=== PATIENT | male | born 1945 | race Caucasian/White ===

== ENCOUNTER 2016-07-22 09:37 | Emergency (ER) | payer MEDICARE, BC ==
[2016-07-22] MEDS ORDERED: Nitroglycerin 0.4 MG Tab.SL ONE (10:00)
[2016-07-22] MEDS ORDERED: Aspirin 81 MG Tab.Chew ONE (10:00)
[2016-07-22] MEDS: Nitroglycerin 0.4 MG Tab.SL SL PRN ×2 (10:05→10:25)
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
[2016-07-22 10:39] LABS: CHLORIDE,CL 101 mmol/L (98-115); SODIUM,NA 140 mmol/L (136-145)
[2016-07-22] MEDS ORDERED: Clopidogrel 75 MG Tab PO ONE (10:47)
[2016-07-22] MEDS ORDERED: Heparin Sodium 5,000 Units/ML Vial IVPUSH ONE (10:47)
[2016-07-22] MEDS ORDERED: Aspirin 81 MG Tab.Chew PO ONE (11:02)
[2016-07-22 11:33] VITALS: BP 135/72
== END 2016-07-22 12:44 ==
LOC: KA.ED 09:37
DX: I21.3 ST elevation (STEMI) myocardial infarction of unspecified site (principal); I48.91 Unspecified atrial fibrillation; I10 Essential (primary) hypertension; M19.90 Unspecified osteoarthritis, unspecified site; E11.9 Type 2 diabetes mellitus without complications; Z98.49 Cataract extraction status, unspecified eye; Z90.49 Acquired absence of other specified parts of digestive tract; Z87.891 Personal history of nicotine dependence; Z88.5 Allergy status to narcotic agent; Z88.8 Allergy status to other drugs, medicaments and biological substances; Z79.82 Long term (current) use of aspirin; Z79.899 Other long term (current) drug therapy; Z79.4 Long term (current) use of insulin
CPT/HCPCS: 71010; 80048; 84484; 85025; 93005; 96374; 99285; A9270; J1644

== ENCOUNTER 2016-07-27 11:08 | Emergency (ER) | payer MEDICARE, BC ==
[2016-07-27] MEDS ORDERED: Sodium Chloride 0.9% 5 ML Syringe FLUSH PRN (11:23)
--- NOTE | 2016-07-27 11:33 | EDM.PDOC ---
Addendum entered and electronically signed by Vazquez Abbott PA 07/27/16 14:26 : ASSESSMENT: NON STEMI WITH ELEVATED TROPONIN PLAN: AIR FLIGHT TO [facility] FOR CATHERIZATION Original Note: ED HISTORY OF PRESENT ILLNESS - General Chief Complaint: Chest Pain Stated Complaint: SHORTNESS OF BREATH Time Seen by Provider: 07/27/16 11:14 Source of Information: Reports: Patient History Limitations: Reports: No limitations - History of Present Illness INITIAL COMMENTS - FREE TEXT/NARRATIVE: PT STATES HE DEVELOPED CHEST FULLNESS AND PAIN WITH INSPIRATION LAST NIGHT AND HAD DIFFICULT SLEEPING BECAUSE HE WAS WORRIED OF HAVING ANOTHER HEART ATTACK. DISCOMFORT IS BECOMING WORSE SO HE PRESENTED TO ER. WAS SEEN HERE FOR STEMI ON AND TRANSPORTED TO [facility]. UNDERWENT PLACEMENT OF 2 CARDIAC STENTS AND WAS DISCHARGED 07/25/16. H/O CABG X 2 IN 2003. DENIES FEVER, PHILIP, ABD PAIN, N/V/D, LEG EDEMA, OR SYNCOPY. Symptom Onset Date: 07/26/16 Timing/Duration: Reports: Getting worse, Gradual onset Severity: mild Location, General: Reports: chest Quality: Reports: Ache, Other (fullness in chest) Worsens with: Reports: Breathing Associated Symptoms (General): Reports: chest pain, shortness of breath. Denies : fever/chills, nausea/vomiting - Related Data Allergies/ADRs: Allergies Allergy/AdvReac Type Severity Reaction Status Date / Time propoxyphene napsylate Allergy Unknown Headache Verified 07/27/16 11:59 [From Darvocet-N 100] oxycodone Allergy Hallucinati Verified 07/27/16 11:59 ons pseudoephedrine Allergy palpatation Verified 07/27/16 11:59 [From Sudafed] s Home Meds: Home Meds Aspirin [Low Dose Aspirin EC] 162 mg PO BEDTIME 04/15/13 [History] Bimatoprost [LUMIGAN 0.01% Ophth Soln] 1 drop EYEBOTH BEDTIME 04/15/13 [History] Diltiazem HCl [Cartia Xt] 240 mg PO BID 04/15/13 [History] Nitroglycerin 0.4 mg SL ASDIRECTED #25 tab.subl 04/15/13 [Rx] Omeprazole 40 mg PO DAILY 04/15/13 [History] glipiZIDE/Metformin HCl [GlipiZIDE-Metformin 2.5-500 MG] 2 each PO BID 04/15/13 [History] Diclofenac Sodium [Diclofenac Sodium ER] 100 mg PO BID 08/21/15 [History] traMADol HCl [Tramadol HCl] 50 - 100 mg PO Q6H PRN 08/21/15 [History] Brimonidine [Alphagan P 0.15% Ophth Soln] 1 drop EYEBOTH BID 07/22/16 [History] Insulin Glargine,Hum.Rec.Anlog [Toujeo Solostar] 30 units SQ BEDTIME 07/22/16 [ History] atorvaSTATin Calcium [Atorvastatin Calcium] 20 mg PO DAILY 07/22/16 [History] Canagliflozin [Invokana] 100 mg PO ACBREAKFAST 07/27/16 [History] Clopidogrel [Plavix] 75 mg PO DAILY 07/27/16 [History] Erythromycin Base [Erythromycin 0.5% Ophth Oint] 1 applic OP BEDTIME 07/27/16 [ History] Fluorometholone [Flarex 0.1% Ophth Susp] 5 ml EYEBOTH DAILY 07/27/16 [History] Furosemide [Lasix] 20 mg PO DAILY 07/27/16 [History] Metoprolol Succinate [Toprol XL] 100 mg PO DAILY 07/27/16 [History] Polyvinyl Alcohol [LiquiTears 1.4% Ophth Soln] 1 drop EYEBOTH QID PRN 07/27/16 [ History] Rivaroxaban [Xarelto] 20 mg PO DAILY@1800 07/27/16 [History] Past Medical History HEENT History: Reports: Cataract Cardiovascular History: Reports: Afib, Hypertension Genitourinary History: Reports: Renal calculus Musculoskeletal History: Reports: Arthritis Endocrine/Metabolic History: Reports: Diabetes, type II Oncologic (Cancer) History: Reports: Other (see below) Other Oncologic History: skin Other Dermatologic History: skin cancer face head and ears - Infectious Disease History Infectious Disease History: Reports: Chicken pox, Measles, Mumps - Past Surgical History HEENT Surgical History: Reports: Cataract surgery, Eye surgery, Other (see below ) Other HEENT Surgeries/Procedures: cornea transplant Cardiovascular Surgical History: Reports: Coronary artery bypass GI Surgical History: Reports: Appendectomy, Colonoscopy Male Surgical History: Reports: Lithotripsy (ESWL) Neurological Surgical History: Reports: Lumbar spine, Other (see below) Other Neurological Surgeries/Procedures: nerve relocation Musculoskeletal Surgical History: Reports: Knee replacement, Other (see below) Other Musculoskeletal Surgeries/Procedures:: back surgery Social & Family History - Family History Family Medical History: Noncontributory - Tobacco Use Smoking Status *Q: Former Smoker Years of Tobacco use: 15 - Caffeine Use Caffeine Use: Reports: None - Recreational Drug Use Recreational Drug Use: No Drug Use in Last 12 Months: No - Living Situation & Occupation Living situation: Reports: Occupation: retired ED ROS GENERAL - Review of Systems Review Of Systems: ROS reveals no pertinent complaints other than HPI. Constitutional: Reports: no symptoms HEENT: Reports: No symptoms Respiratory: Reports: Shortness of Breath Cardiovascular: Reports: Chest pain Endocrine: Reports: no symptoms GI/Abdominal: Reports: No symptoms : Reports: no symptoms Musculoskeletal: Reports: no symptoms Skin: Reports: no symptoms Neurological: Reports: No Symptoms Psychiatric: Reports: No symptoms Hematologic/Lymphatic: Reports: no symptoms Immunologic: Reports: no symptoms ED EXAM, GENERAL - Physical Exam Exam: See Below Exam Limited By: No limitations General Appearance: alert, WD/WN, no apparent distress Eye Exam: bilateral eye: normal inspection Nose: normal inspection, no blood Throat/Mouth: Normal inspection, Normal oropharynx, No airway compromise Head: atraumatic, normocephalic Neck: normal inspection, supple Respiratory/Chest: no respiratory distress, lungs clear, normal breath sounds, no accessory muscle use Cardiovascular: regular rate, rhythm, no murmur GI/Abdominal: normal bowel sounds, soft, non tender, no organomegaly, no distention, no abnormal bruit, no mass Back Exam: normal inspection. No: CVA tenderness (L), CVA tenderness (R) Extremities: normal inspection, no pedal edema Neurological: alert, oriented, normal cognition Psychiatric: normal affect, normal mood Skin Exam: Warm, Dry, Intact, Normal color, No rash Lymphatic: no adenopathy EKG INTERPRETATION EKG Date: 07/27/16 Time: 11:25 Rhythm: NSR Rate (beats/min): 63 ST-T: elevated Comparison: change from previous EKG Course - Orders/Labs/Meds Orders: Active Orders 24 hr Category Date Time Status Cardiac Monitoring [RC] . DIRECTED Care 07/27/16 11:23 Ordered EKG Documentation Completion [RC] ASDIRECTED Care 07/27/16 11:25 Ordered Peripheral IV Care [RC] . DIRECTED Care 07/27/16 11:25 Ordered Pulse Oximetry [RC] CONTINUOUS Care 07/27/16 11:24 Ordered Chest 1V Frontal [CR] Stat Exams 07/27/16 11:24 Ordered B-TYPE NATRIURETIC PEPTIDE,BNP [CHEM] Stat Lab 07/27/16 11:23 Ordered CBC WITH AUTO DIFF [HEME] Stat Lab 07/27/16 11:23 Ordered CKMB [CHEM] Stat Lab 07/27/16 11:23 Ordered COMPREHENSIVE METABOLIC PN,CMP [CHEM] Stat Lab 07/27/16 11:24 Ordered MAGNESIUM [CHEM] Stat Lab 07/27/16 11:23 Ordered PTT,PARTIAL THROMBOPLSTIN TIME [COAG] Stat Lab 07/27/16 11:23 Ordered TROPONIN I [CHEM] Stat Lab 07/27/16 11:23 Ordered Sodium Chloride 0.9% [Syrex Flush] Med 07/27/16 11:23 Ordered 5 ml FLUSH Q8HR PRN Peripheral IV Insertion Adult [OM.PC] Stat Oth 07/27/16 11:23 Ordered Saline Lock Insert [OM.PC] Stat Oth 07/27/16 11:23 Ordered EKG 12 Lead [EK] Stat Ther 07/27/16 11:24 Ordered - Re-Assessments/Exams Free Text/Narrative Re-Assessment/Exam: 07/27/16 12:48 PT AFEBRILE, NONTOXIC APPEARING, CP RESOLVED. DISCUSSED CASE WITH DR LIGHT AND DR ZAMORANO AT [facility]. WILL ACCEPT TRANSFER VIA [facility]. Departure - Departure Time of Disposition: 12:52 Disposition: DC/Tfer to Acute Hospital 02 Reason for Transfer *Q: Primary PCI Indicated Condition: fair Clinical Impression: Non-STEMI (non-ST elevated myocardial infarction) - My Orders Last 24 Hours: My Active Orders 07/27/16 11:23 Cardiac Monitoring [RC] . DIRECTED B-TYPE NATRIURETIC PEPTIDE,BNP [CHEM] Stat CBC WITH AUTO DIFF [HEME] Stat CKMB [CHEM] Stat MAGNESIUM [CHEM] Stat PTT,PARTIAL THROMBOPLSTIN TIME [COAG] Stat TROPONIN I [CHEM] Stat Sodium Chloride 0.9% [Syrex Flush] 5 ml FLUSH Q8HR PRN Peripheral IV Insertion Adult [OM.PC] Stat Saline Lock Insert [OM.PC] Stat 07/27/16 11:24 Pulse Oximetry [RC] CONTINUOUS Chest 1V Frontal [CR] Stat COMPREHENSIVE METABOLIC PN,CMP [CHEM] Stat EKG 12 Lead [EK] Stat 07/27/16 11:25 EKG Documentation Completion [RC] ASDIRECTED Peripheral IV Care [RC] . DIRECTED - Assessment/Plan Last 24 Hours: My Active Orders 07/27/16 11:23 Cardiac Monitoring [RC] . DIRECTED B-TYPE NATRIURETIC PEPTIDE,BNP [CHEM] Stat CBC WITH AUTO DIFF [HEME] Stat CKMB [CHEM] Stat MAGNESIUM [CHEM] Stat PTT,PARTIAL THROMBOPLSTIN TIME [COAG] Stat TROPONIN I [CHEM] Stat Sodium Chloride 0.9% [Syrex Flush] 5 ml FLUSH Q8HR PRN Peripheral IV Insertion Adult [OM.PC] Stat Saline Lock Insert [OM.PC] Stat 07/27/16 11:24 Pulse Oximetry [RC] CONTINUOUS Chest 1V Frontal [CR] Stat COMPREHENSIVE METABOLIC PN,CMP [CHEM] Stat EKG 12 Lead [EK] Stat 07/27/16 11:25 EKG Documentation Completion [RC] ASDIRECTED Peripheral IV Care [RC] . DIRECTED
[2016-07-27] MEDS ORDERED: Nitroglycerin 2% Oint 1 GM UD Packet TOP ONE (11:36)
[2016-07-27 11:47] VITALS: BP 140/57
[2016-07-27] MEDS ORDERED: LORazepam 2 MG/ML MDV IVPUSH ONE (12:36)
[2016-07-27] MEDS ORDERED: Aspirin 81 MG Tab.Chew PO ONE (12:36)
[2016-07-27] MEDS ORDERED: Heparin Sodium 5,000 Units/ML Vial IVPUSH ONE (12:41)
== END 2016-07-27 14:25 ==
LOC: KA.ED 11:08
DX: I21.4 Non-ST elevation (NSTEMI) myocardial infarction (principal); I10 Essential (primary) hypertension; E11.9 Type 2 diabetes mellitus without complications; I48.91 Unspecified atrial fibrillation; M19.90 Unspecified osteoarthritis, unspecified site; Z90.49 Acquired absence of other specified parts of digestive tract; Z79.899 Other long term (current) drug therapy; R06.02 Shortness of breath; Z88.8 Allergy status to other drugs, medicaments and biological substances; Z79.4 Long term (current) use of insulin; Z79.82 Long term (current) use of aspirin; Z98.49 Cataract extraction status, unspecified eye; Z95.1 Presence of aortocoronary bypass graft; Z98.890 Other specified postprocedural states; Z87.891 Personal history of nicotine dependence
CPT/HCPCS: 71010; 80053; 82553; 83735; 83880; 84484; 85025; 85610; 85730; 93005; 96372; 96374; 99285; A9270; J1644; J2060

== ENCOUNTER 2016-08-07 11:10 | Emergency (ER) | payer MEDICARE, BC ==
[2016-08-07] MEDS ORDERED: Nitroglycerin 2% Oint 1 GM UD Packet TOP ONE (11:25)
[2016-08-07] MEDS ORDERED: Sodium Chloride 0.9% 5 ML Syringe FLUSH PRN (11:25)
[2016-08-07] MEDS ORDERED: Aspirin 81 MG Tab.Chew PO ONE (11:25)
--- NOTE | 2016-08-07 11:31 | EDM.PDOC ---
ED HISTORY OF PRESENT ILLNESS - General Chief Complaint: Cardiovascular Problem Stated Complaint: palpatations Time Seen by Provider: 08/07/16 11:10 Source of Information: Reports: Patient, Family History Limitations: Reports: No limitations - History of Present Illness INITIAL COMMENTS - FREE TEXT/NARRATIVE: 71 YO WM presents to ER from clinic today due to palpitations. Pt was seen 1 week ago and had acute CT requiring PTCA with stent at [facility]. Pt was seen by cardiology yesterday and had his amniodirine decreased to 1 tablet from 4 tablets. Pt dneies chest pain, denies shortness of breath, denies dizziness. Pt reports feeling diaphoretic this am but currently feels fine. Pt had an EKG in clinic and it showed concern of AMI prompting ER evaluation. Symptom Onset Date: 08/07/16 Timing/Duration: Reports: Day(s): (1) Severity: mild Location, General: Reports: chest Improves with: Reports: None Worsens with: Reports: None Associated Symptoms (General): Reports: no other symptoms, diaphoresis. Denies : chest pain, nausea/vomiting, shortness of breath, syncope - Related Data Allergies/ADRs: Allergies Allergy/AdvReac Type Severity Reaction Status Date / Time propoxyphene napsylate Allergy Unknown Headache Verified 07/27/16 11:59 [From Darvocet-N 100] oxycodone Allergy Hallucinati Verified 07/27/16 11:59 ons pseudoephedrine Allergy palpatation Verified 07/27/16 11:59 [From Sudafed] s Home Meds: Home Meds Aspirin [Low Dose Aspirin EC] 81 mg PO BEDTIME 04/15/13 [History] Bimatoprost [LUMIGAN 0.01% Ophth Soln] 1 drop EYEBOTH BEDTIME 04/15/13 [History] Diltiazem HCl [Cartia Xt] 240 mg PO BID 04/15/13 [History] Nitroglycerin 0.4 mg SL ASDIRECTED #25 tab.subl 04/15/13 [Rx] Omeprazole 40 mg PO DAILY 04/15/13 [History] glipiZIDE/Metformin HCl [GlipiZIDE-Metformin 2.5-500 MG] 2 each PO BID 04/15/13 [History] Diclofenac Sodium [Diclofenac Sodium ER] 100 mg PO BID 08/21/15 [History] traMADol HCl [Tramadol HCl] 50 - 100 mg PO Q6H PRN 08/21/15 [History] Brimonidine [Alphagan P 0.15% Ophth Soln] 1 drop EYEBOTH BID 07/22/16 [History] Insulin Glargine,Hum.Rec.Anlog [Toujeo Solostar] 30 units SQ BEDTIME 07/22/16 [ History] atorvaSTATin Calcium [Atorvastatin Calcium] 40 mg PO DAILY 07/22/16 [History] Canagliflozin [Invokana] 100 mg PO ACBREAKFAST 07/27/16 [History] Clopidogrel [Plavix] 75 mg PO DAILY 07/27/16 [History] Erythromycin Base [Erythromycin 0.5% Ophth Oint] 1 applic OP BEDTIME 07/27/16 [ History] Fluorometholone [Flarex 0.1% Ophth Susp] 5 ml EYEBOTH DAILY 07/27/16 [History] Furosemide [Lasix] 20 mg PO DAILY 07/27/16 [History] Metoprolol Succinate [Toprol XL] 100 mg PO DAILY 07/27/16 [History] Polyvinyl Alcohol [LiquiTears 1.4% Ophth Soln] 1 drop EYEBOTH QID PRN 07/27/16 [ History] Rivaroxaban [Xarelto] 20 mg PO DAILY@1800 07/27/16 [History] Past Medical History HEENT History: Reports: Cataract Cardiovascular History: Reports: Afib, Hypertension Genitourinary History: Reports: Renal calculus Musculoskeletal History: Reports: Arthritis Endocrine/Metabolic History: Reports: Diabetes, type II Oncologic (Cancer) History: Reports: Other (see below) Other Oncologic History: skin Other Dermatologic History: skin cancer face head and ears - Infectious Disease History Infectious Disease History: Reports: Chicken pox, Measles, Mumps - Past Surgical History HEENT Surgical History: Reports: Cataract surgery, Eye surgery, Other (see below ) Other HEENT Surgeries/Procedures: cornea transplant Cardiovascular Surgical History: Reports: Coronary artery bypass GI Surgical History: Reports: Appendectomy, Colonoscopy Male Surgical History: Reports: Lithotripsy (ESWL) Neurological Surgical History: Reports: Lumbar spine, Other (see below) Other Neurological Surgeries/Procedures: nerve relocation Musculoskeletal Surgical History: Reports: Knee replacement, Other (see below) Other Musculoskeletal Surgeries/Procedures:: back surgery Social & Family History - Family History Family Medical History: Noncontributory - Tobacco Use Smoking Status *Q: Former Smoker Years of Tobacco use: 15 Packs/Tins Daily: 1 Used Tobacco, but Quit: Yes Month Tobacco Last Used: August Second Hand Smoke Exposure: No - Caffeine Use Caffeine Use: Reports: None - Recreational Drug Use Recreational Drug Use: No Drug Use in Last 12 Months: No - Living Situation & Occupation Living situation: Reports: Occupation: retired ED ROS GENERAL - Review of Systems Review Of Systems: See Below Constitutional: Reports: no symptoms HEENT: Reports: No symptoms Respiratory: Reports: No Symptoms Cardiovascular: Reports: No symptoms, Palpitations Endocrine: Reports: no symptoms GI/Abdominal: Reports: No symptoms : Reports: no symptoms Musculoskeletal: Reports: no symptoms Skin: Reports: no symptoms Neurological: Reports: No Symptoms Psychiatric: Reports: No symptoms Hematologic/Lymphatic: Reports: no symptoms Immunologic: Reports: no symptoms ED EXAM, GENERAL - Physical Exam Exam: See Below Exam Limited By: No limitations General Appearance: alert, WD/WN, no apparent distress Eye Exam: bilateral eye: PERRL Ears: normal external exam, normal canal, hearing grossly normal, normal TMs Ear Exam: bilateral ear: auricle normal, canal normal, TM normal Nose: normal inspection, normal mucosa, no blood Throat/Mouth: Normal inspection, Normal lips, Normal teeth, Normal gums, Normal oropharynx, Normal voice, No airway compromise Head: atraumatic, normocephalic Neck: normal inspection, supple, non-tender, full range of motion Respiratory/Chest: no respiratory distress, lungs clear, normal breath sounds, no accessory muscle use, chest non-tender Cardiovascular: normal peripheral pulses, regular rate, rhythm, no edema, no gallop, no JVD, no murmur, no rub GI/Abdominal: normal bowel sounds, soft, non tender, no organomegaly, no distention, no abnormal bruit, no mass Back Exam: normal inspection, full range of motion, NT Extremities: normal inspection, normal range of motion, non-tender, normal capillary refill, no pedal edema Neurological: alert, oriented, CN II-XII intact, normal cognition, normal gait, normal reflexes, no motor/sensory deficits Psychiatric: normal affect, normal mood Skin Exam: Warm, Dry, Intact, Normal color, No rash Lymphatic: no adenopathy EKG INTERPRETATION EKG Date: 08/07/16 Time: 11:10 Rhythm: NSR Rate (beats/min): 64 [place]: normal P-wave: present QRS: normal ST-T: depressed QT: normal Comparison: change from previous EKG Course - Vital Signs Last Recorded V/S: Last Vital Signs Temp Pulse 80 08/07/16 11:10 Resp 20 08/07/16 11:10 BP 132/71 08/07/16 11:10 Pulse Ox 97 08/07/16 11:10 - Orders/Labs/Meds Orders: Active Orders 24 hr Category Date Time Status EKG Documentation Completion [RC] ASDIRECTED Care 08/07/16 11:25 Active Peripheral IV Care [RC] . DIRECTED Care 08/07/16 11:25 Active Chest 1V Frontal [CR] Stat Exams 08/07/16 11:25 Taken Sodium Chloride 0.9% [Syrex Flush] Med 08/07/16 11:25 Active 5 ml FLUSH Q8HR PRN Peripheral IV Insertion Adult [OM.PC] Routine Oth 08/07/16 11:25 Ordered EKG 12 Lead [EK] Routine Ther 08/07/16 11:25 Ordered Medication Orders Sodium Chloride (Syrex Flush) 5 ml FLUSH Q8HR PRN PRN Reason: Keep Vein Open Labs: Laboratory Tests 08/07/16 08/07/16 08/07/16 Range/Units 11:30 11:30 11:30 WBC 8.5 (5.0-10.0) 10^3/uL RBC 4.93 (4.50-6.00) 10^6/uL Hgb 14.1 (13.0-17.0) g/dL Hct 43.2 (40.0-52.0) % MCV 87.7 (82.0-92.0) fL MCH 28.7 (27.0-31.0) pg MCHC 32.7 (32.0-36.0) g/dL RDW 13.4 (11.5-14.5) % Plt Count 419 H (150-300) 10^3/uL MPV 7.5 (7.4-10.4) fL Neut % (Auto) 75.5 H (50.0-70.0) % Lymph % (Auto) 15.0 L (20.0-40.0) % [place] % (Auto) 6.4 (2.0-8.0) % Eos % (Auto) 2.1 (1.0-3.0) % Baso % (Auto) 1.0 (0.0-1.0) % Neut # (Auto) 6.4 (2.5-7.0) 10^3/uL Lymph # (Auto) 1.3 (1.0-4.0) 10^3/uL [place] # (Auto) 0.5 (0.1-0.8) 10^3/uL Eos # (Auto) 0.2 (0.1-0.3) 10^3/uL Baso # (Auto) 0.1 (0.0-0.1) 10^3/uL PT 13.2 H (8.9-11.4) SEC INR 1.3 H (0.9-1.1) APTT 31.6 H (20.8-31.2) SEC Sodium 139 (136-145) mmol/L Potassium 4.2 (3.3-5.3) mmol/L Chloride 100 (98-115) mmol/L Carbon Dioxide 28.8 (21.0-32.0) mmol/L BUN 25 (6-25) mg/dL Creatinine 1.32 H (0.51-1.17) mg/dL Est Cr Clr Drug Dosing TNP Estimated GFR (MDRD) 53 mL/min Glucose 149 H (70-110) mg/dL Calcium 9.3 (8.7-10.3) mg/dL Creatine Kinase 95 (26-276) U/L CK-MB (CK-2) 1.60 (0.00-4.30) ng/mL Troponin I 0.21 H* (0.00-0.070) ng/mL Meds: Medications Generic Name Dose Route Start Last Admin Trade Name Freq PRN Reason Stop Dose Admin Sodium Chloride 5 ml 08/07/16 11:25 Syrex Flush FLUSH Q8HR PRN Keep Vein Open Discontinued Medications Generic Name Dose Route Start Last Admin Trade Name Freq PRN Reason Stop Dose Admin Aspirin 324 mg 08/07/16 11:25 08/07/16 11:46 Aspirin PO 08/07/16 11:26 324 mg ONETIME ONE Administration Nitroglycerin 1 gm 08/07/16 11:25 08/07/16 11:46 Nitro-Bid 2% TOP 08/07/16 11:26 1 gm ONETIME ONE Administration - Radiology Interpretation Free Text/Narrative:: CXR- NAD Departure - Departure Time of Disposition: 12:46 Disposition: Against Medical Advice 07 Condition: serious Clinical Impression: Heart palpitations, Troponin I above reference range Instructions: Heart Attack, [id number], Atrial Fibrillation, [id number], Palpitations, [id number] Referrals: Zonia Harrison MD [Primary Care Provider] - Forms: Refusal of Care AMA - My Orders Last 24 Hours: My Active Orders 08/07/16 11:25 EKG Documentation Completion [RC] ASDIRECTED Peripheral IV Care [RC] . DIRECTED Chest 1V Frontal [CR] Stat Sodium Chloride 0.9% [Syrex Flush] 5 ml FLUSH Q8HR PRN Peripheral IV Insertion Adult [OM.PC] Routine EKG 12 Lead [EK] Routine - Assessment/Plan Last 24 Hours: My Active Orders 08/07/16 11:25 EKG Documentation Completion [RC] ASDIRECTED Peripheral IV Care [RC] . DIRECTED Chest 1V Frontal [CR] Stat Sodium Chloride 0.9% [Syrex Flush] 5 ml FLUSH Q8HR PRN Peripheral IV Insertion Adult [OM.PC] Routine EKG 12 Lead [EK] Routine Assessment:: 1. elevated trop I 2. palpitations Plan: 1. discussed case with Dr Walden- Cardiology who recommended 23 hour observation due to elevated trop I. Pt had a trop I of 3.0 on 07/27/2016 and presented without chest pain at that time. Trop I appears to be trending down but unclear if this is a new presentation. Dr Walden recommended telemetry and repeat trop I in am. 2. Pt refusing to stay. Pt understands risks of AMI, and mcc disability due to abnormal labs and presentation. Pt agreed to come to outpatient lab tomorrow for repeat trop I in am and a follow up with Dr Arce on friday for further evaluation and treatment. Pt will return to Er for worsening symptoms or any episode of chest pain
[2016-08-07 12:13] LABS: CHLORIDE,CL 100 mmol/L (98-115); SODIUM,NA 139 mmol/L (136-145)
[2016-08-07 19:15] VITALS: BP 116/56
== END 2016-08-07 13:15 | disposition left against medical advice (07) ==
LOC: KA.ED 11:10
DX: R00.2 Palpitations (principal); R79.89 Other specified abnormal findings of blood chemistry; I48.91 Unspecified atrial fibrillation; I10 Essential (primary) hypertension; E11.9 Type 2 diabetes mellitus without complications; R94.31 Abnormal electrocardiogram [ECG] [EKG]; Z90.49 Acquired absence of other specified parts of digestive tract; Z98.890 Other specified postprocedural states; Z87.891 Personal history of nicotine dependence; Z88.8 Allergy status to other drugs, medicaments and biological substances; Z79.899 Other long term (current) drug therapy; Z79.82 Long term (current) use of aspirin
CPT/HCPCS: 36415; 71010; 80048; 82550; 82553; 84484; 85025; 85610; 85730; 93005; 99285; A9270

== ENCOUNTER 2016-09-04 03:00 | Emergency (ER) | payer MEDICARE, BC ==
[~2016-09-04 03:00] MED LIST: Sodium Chloride 0.9% 1,000 ML IV SCH
[2016-09-04] MEDS ORDERED: Furosemide 40 MG/4 ML VIAL ONE (03:05)
[2016-09-04] MEDS ORDERED: Morphine 4 MG/ML Syringe ONE (03:05)
[2016-09-04] MEDS ORDERED: Albuterol/Ipratropium 3.0-0.5 MG/3 ML Neb Soln ONE (03:26)
[2016-09-04 03:54] LABS: CHLORIDE,CL 98 mmol/L (98-115); SODIUM,NA 144 mmol/L (136-145)
--- NOTE | 2016-09-04 04:36 | EDM.PDOC ---
ED HPI GENERAL MEDICAL PROBLEM - General Stated Complaint: short of breath Time Seen by Provider: 09/04/16 03:10 Source of Information: Reports: Patient, Family History Limitations: Reports: Respiratory Distress - History of Present Illness INITIAL COMMENTS - FREE TEXT/NARRATIVE: Patient brought to ER by with difficulty breathing. He feels very short of breath and is breathing rapidly. His says this started at 0100 when he awoke complaining of shortness of breath. He had a STEMI and two stents placed 6 weeks ago at [facility]. He denies chest pain or heaviness currently. - Related Data Allergies Allergy/AdvReac Type Severity Reaction Status Date / Time propoxyphene napsylate Allergy Unknown Headache Verified 07/27/16 11:59 [From Darvocet-N 100] oxycodone Allergy Hallucinati Verified 07/27/16 11:59 ons pseudoephedrine Allergy palpatation Verified 07/27/16 11:59 [From Sudafed] s Home Meds: Home Meds Aspirin [Low Dose Aspirin EC] 81 mg PO BEDTIME 04/15/13 [History] Bimatoprost [LUMIGAN 0.01% Ophth Soln] 1 drop EYEBOTH BEDTIME 04/15/13 [History] Nitroglycerin 0.4 mg SL ASDIRECTED #25 tab.subl 04/15/13 [Rx] traMADol HCl [Tramadol HCl] 50 - 100 mg PO Q6H PRN 08/21/15 [History] Brimonidine [Alphagan P 0.15% Ophth Soln] 1 drop EYEBOTH BID 07/22/16 [History] Insulin Glargine,Hum.Rec.Anlog [Toumto Solostar] 30 units SQ BEDTIME 07/22/16 [ History] Canagliflozin [Invokana] 100 mg PO ACBREAKFAST 07/27/16 [History] Clopidogrel [Plavix] 75 mg PO DAILY 07/27/16 [History] Erythromycin Base [Erythromycin 0.5% Ophth Oint] 1 applic OP BEDTIME 07/27/16 [ History] Fluorometholone [Flarex 0.1% Ophth Susp] 5 ml EYEBOTH DAILY 07/27/16 [History] Furosemide [Lasix] 20 mg PO DAILY 07/27/16 [History] Metoprolol Succinate [Toprol XL] 100 mg PO DAILY 07/27/16 [History] Polyvinyl Alcohol [LiquiTears 1.4% Ophth Soln] 1 drop EYEBOTH QID PRN 07/27/16 [ History] Rivaroxaban [Xarelto] 20 mg PO DAILY@1800 07/27/16 [History] ALPRAZolam [Alprazolam] 0.25 mg PO BID PRN 08/07/16 [History] Amiodarone [Cordarone] 200 mg PO DAILY 08/07/16 [History] Pantoprazole [ProTONIX] 40 mg PO DAILY 08/07/16 [History] Rosuvastatin [Crestor] 20 mg PO BEDTIME 08/07/16 [History] glipiZIDE/Metformin HCl [GlipiZIDE-Metformin 2.5-500 MG] 1 each PO BIDMEALS [History] Past Medical History HEENT History: Reports: Cataract Cardiovascular History: Reports: Afib, Hypertension Genitourinary History: Reports: Renal Calculus Musculoskeletal History: Reports: Arthritis Neurological History: Reports: None Endocrine/Metabolic History: Reports: Diabetes, Type II Oncologic (Cancer) History: Reports: Other (See Below) Other Oncologic History: skin Other Dermatologic History: skin cancer face head and ears - Infectious Disease History Infectious Disease History: Reports: Chicken Pox, Measles, Mumps - Past Surgical History HEENT Surgical History: Reports: Cataract Surgery, Eye Surgery, Other (See Below ) Cardiovascular Surgical History: Reports: Coronary Artery Bypass Neurological Surgical History: Reports: Lumbar Spine, Other (See Below) Musculoskeletal Surgical History: Reports: Knee Replacement, Other (See Below) Social & Family History - Family History Family Medical History: Noncontributory Cardiac: Reports: Bypass, ID Endocrine/Metabolic: Reports: Diabetes, type II Oncologic: Reports: Ovarian - Tobacco Use Smoking Status *Q: Former Smoker Years of Tobacco use: 15 Packs/Tins Daily: 1 Used Tobacco, but Quit: Yes Month Tobacco Last Used: August Second Hand Smoke Exposure: No - Caffeine Use Caffeine Use: Reports: None - Recreational Drug Use Recreational Drug Use: No Drug Use in Last 12 Months: No - Living Situation & Occupation Living situation: Reports: Occupation: Retired ED ROS GENERAL - Review of Systems Review Of Systems: ROS reveals no pertinent complaints other than HPI. ED EXAM, GENERAL - Physical Exam Exam: See Below Exam Limited By: Respiratory Distress General Appearance: Alert (Awake but struggling too much with breathing to talk. ), Anxious Eye Exam: Bilateral Eye: EOMI, Normal Inspection, PERRL Ears: Normal External Exam Nose: Normal Inspection, No Blood Throat/Mouth: No Airway Compromise Head: Atraumatic, Normocephalic Neck: Non-Tender, Full Range of Motion Respiratory/Chest: Respiratory Distress, Decreased Breath Sounds, Crackles, Accessory Muscle Use Cardiovascular: Normal Peripheral Pulses, Regular Rate, Rhythm, No JVD Peripheral Pulses: 2+: Carotid (L), Carotid (R), Radial (L), Radial (R), Posterior Tibial (L), Posterior Tibial (R) GI/Abdominal: Distended Extremities: Pedal Edema (mild), Pallor Neurological: Alert, Oriented, No Motor/Sensory Deficits Psychiatric: Anxious Skin Exam: Diaphoretic, Pallor Course - Orders/Labs/Meds Orders: Active Orders 24 hr Category Date Time Status Chest 1V Frontal [CR] Routine Exams 09/04/16 Taken B-TYPE NATRIURETIC PEPTIDE,BNP [CHEM] Stat Lab 09/04/16 03:20 Results BASIC METABOLIC PANEL,BMP [CHEM] Stat Lab 09/04/16 03:20 Results CKMB [CHEM] Stat Lab 09/04/16 03:20 Results CREATINE KINASE,CK [CHEM] Stat Lab 09/04/16 03:20 Results TROPONIN I [CHEM] Stat Lab 09/04/16 03:20 Results Labs: Laboratory Tests 09/04/16 09/04/16 09/04/16 Range/Units 03:20 03:20 03:20 WBC 15.2 H (5.0-10.0) 10^3/uL RBC 5.02 (4.50-6.00) 10^6/uL Hgb 14.5 (13.0-17.0) g/dL Hct 44.7 (40.0-52.0) % MCV 89.1 (82.0-92.0) fL MCH 28.9 (27.0-31.0) pg MCHC 32.5 (32.0-36.0) g/dL RDW 15.7 H (11.5-14.5) % Plt Count 309 H (150-300) 10^3/uL MPV 8.7 (7.4-10.4) fL Neut % (Auto) 59.1 (50.0-70.0) % Lymph % (Auto) 30.4 (20.0-40.0) % [place] % (Auto) 8.2 H (2.0-8.0) % Eos % (Auto) 1.7 (1.0-3.0) % Baso % (Auto) 0.6 (0.0-1.0) % Neut # (Auto) 9.0 H (2.5-7.0) 10^3/uL Lymph # (Auto) 4.6 H (1.0-4.0) 10^3/uL [place] # (Auto) 1.2 H (0.1-0.8) 10^3/uL Eos # (Auto) 0.3 (0.1-0.3) 10^3/uL Baso # (Auto) 0.1 (0.0-0.1) 10^3/uL PT 11.5 H (8.9-11.4) SEC INR 1.1 (0.9-1.1) APTT 24.8 (20.8-31.2) SEC Sodium 144 (136-145) mmol/L Potassium 3.3 (3.3-5.3) mmol/L Chloride 98 (98-115) mmol/L Carbon Dioxide 29.4 (21.0-32.0) mmol/L BUN 27 H (6-25) mg/dL Creatinine 1.48 H (0.51-1.17) mg/dL Est Cr Clr Drug Dosing TNP Estimated GFR (MDRD) 47 mL/min Glucose 323 H (70-110) mg/dL Calcium 8.7 (8.7-10.3) mg/dL Creatine Kinase 112 (26-276) U/L CK-MB (CK-2) 1.60 (0.00-4.30) ng/mL Troponin I 0.04 (0.00-0.070) ng/mL Meds: Medications Discontinued Medications Generic Name Dose Route Start Last Admin Trade Name Freq PRN Reason Stop Dose Admin Albuterol/Ipratropium Confirm 09/04/16 03:26 Duoneb 3.0-0.5 Mg/3 Ml Administered 09/04/16 03:27 Dose 3 ml .ROUTE .STK-MED ONE Furosemide Confirm 09/04/16 03:05 Lasix Administered 09/04/16 03:06 Dose 40 mg .ROUTE .STK-MED ONE Morphine Sulfate Confirm 09/04/16 03:05 Morphine Administered 09/04/16 03:06 Dose 4 mg .ROUTE .STK-MED ONE - Re-Assessments/Exams Free Text/Narrative Re-Assessment/Exam: 09/04/16 04:46 Patient continued to struggle with breathing and O2 sats hovered in 60s and 70s. We called anesthesia and patient was able to increase sats to 90% meanwhile. DuoNeb didn't help noticeably. Two sublingual nitros were administered as well as aspirin. [facility] to [facility] in [place] where he was accepted by geophysical prospecting permit agent Dr. Edwards. Med transported after patient was intubated. Patient remained hemodynamically stable following intubation. Troponin was 0.04, BNP 750 ( compared with 630 a week ago). Departure - Departure Time of Disposition: 04:40 Disposition: DC/Tfer to Acute Hospital 02 Condition: fair Clinical Impression: Respiratory distress - Discharge Information - My Orders Last 24 Hours: My Active Orders 09/04/16 Chest 1V Frontal [CR] Routine 09/04/16 03:20 B-TYPE NATRIURETIC PEPTIDE,BNP [CHEM] Stat BASIC METABOLIC PANEL,BMP [CHEM] Stat CKMB [CHEM] Stat CREATINE KINASE,CK [CHEM] Stat TROPONIN I [CHEM] Stat - Assessment/Plan Last 24 Hours: My Active Orders 09/04/16 Chest 1V Frontal [CR] Routine 09/04/16 03:20 B-TYPE NATRIURETIC PEPTIDE,BNP [CHEM] Stat BASIC METABOLIC PANEL,BMP [CHEM] Stat CKMB [CHEM] Stat CREATINE KINASE,CK [CHEM] Stat TROPONIN I [CHEM] Stat
[2016-09-04] MEDS ORDERED: Sodium Chloride 0.9% 1,000 ML ONE (04:53)
[2016-09-04] MEDS ORDERED: Aspirin 81 MG Tab.Chew ONE (04:59)
[2016-09-04] MEDS ORDERED: Aspirin 81 MG Tab.Chew PO ONE (05:00)
[2016-09-04 05:43] VITALS: BP 195/92
[2016-09-04] MEDS ORDERED: Albuterol/Ipratropium 3.0-0.5 MG/3 ML Neb Soln NEB ONE (16:47)
[2016-09-04] MEDS: Furosemide 40 MG/4 ML VIAL IVPUSH SCH (16:55)
== END 2016-09-04 04:40 ==
LOC: KA.ED 03:00
DX: R06.00 Dyspnea, unspecified (principal); I48.91 Unspecified atrial fibrillation; I10 Essential (primary) hypertension; M19.90 Unspecified osteoarthritis, unspecified site; E11.9 Type 2 diabetes mellitus without complications; Z98.49 Cataract extraction status, unspecified eye; Z98.890 Other specified postprocedural states; Z87.891 Personal history of nicotine dependence; Z88.5 Allergy status to narcotic agent; Z88.8 Allergy status to other drugs, medicaments and biological substances; Z79.82 Long term (current) use of aspirin; Z79.899 Other long term (current) drug therapy; Z79.4 Long term (current) use of insulin
CPT/HCPCS: 36415; 71010; 80048; 82550; 82553; 83880; 84484; 85025; 85610; 85730; 93005; 96361; 96374; 99285; A9270; J1940; J7030; 31500

== ENCOUNTER 2019-06-03 14:32 | Inpatient (IN) | payer MEDICARE, BC ==
[2019-06-03] MEDS ORDERED: Sodium Chloride 0.9% 10 ML Syringe FLUSH PRN (16:33)
[2019-06-03] MEDS ORDERED: Diltiazem 125 MG in Sodium Chloride 0.9% 100 ML IV SCH (16:45)
[2019-06-03 17:12] LABS: ANION GAP 13.8 mmol/L (5-15); CHLORIDE,CL 102 mmol/L (98-115); SODIUM,NA 139 mmol/L (136-145)
[2019-06-03 17:36] VITALS: BP 135/56; PULSE 126
--- NOTE | 2019-06-04 08:24 | DISCH ---
Discharge/Transfer Note HOSPITAL COURSE: This is a 73-year-old male who was admitted this afternoon with atrial fibrillation with rapid ventricular response. The patient was hemodynamically stable and basically asymptomatic with the exception of a little bit of shortness of breath. He was admitted to the floor and initiated with Cardizem drip. Lab work was drawn with his IV start. It did show troponin I elevated at 0.11. The remainder of the lab work showed an elevated BUN and creatinine, which is a chronic problem for the patient. CBC was basically normal. His INR was 1.7 today. At 12-lead EKG was performed in the clinic prior to admission and showed atrial fibrillation with rapid ventricular response, ventricular rate of 134. He has remained in that rhythm on telemetry since admission. Knowing that this patient does have a very significant cardiac history with recurrent atrial fibrillation following a maze procedure with cardiac ablation and two cardioversion since February of 2019, I felt it was imperative that he be transferred to [facility] in [place], [place]. I did speak to Dr. Baldwin and he accepted the patient and transfer the patient. One call nurse will facilitate a nurse to nurse report with the cardiac intermediate unit at the Center. He is followed by Dr. Daugherty as well as Riki ALDRIDGE and Cardiology at [facility]. I did discuss the plan of care with the patient and he does wish to proceed. We will see him back in followup point after discharge. FINAL DIAGNOSES: 1. Atrial fibrillation with rapid ventricular response, hemodynamically stable. 2. Elevated troponin I, possible myocardial infarction. 3. Diabetes mellitus. 4. Hypertension. 5. BPH. 6. Hypercholesterolemia. 7. Congestive heart failure. 8. Long-term anticoagulation therapy with a subtherapeutic INR. /[id number]/MODL
== END 2019-06-03 18:15 | DRG 282 ==
LOC: KA.OC 14:32 → UNDOADMIN 16:10 → KA.MS 16:10
DX: I48.91 Unspecified atrial fibrillation (principal); I21.9 Acute myocardial infarction, unspecified; E11.9 Type 2 diabetes mellitus without complications; N40.0 Benign prostatic hyperplasia without lower urinary tract symptoms; I11.0 Hypertensive heart disease with heart failure; I50.9 Heart failure, unspecified; R79.1 Abnormal coagulation profile; F41.9 Anxiety disorder, unspecified; K21.9 Gastro-esophageal reflux disease without esophagitis; E78.00 Pure hypercholesterolemia, unspecified; G89.29 Other chronic pain; Z88.8 Allergy status to other drugs, medicaments and biological substances; Z79.01 Long term (current) use of anticoagulants; Z79.899 Other long term (current) drug therapy; Z79.84 Long term (current) use of oral hypoglycemic drugs
CPT/HCPCS: 36415; 36416; 80053; 82550; 82553; 84484; 85025; 85610; 93005; J3490; J7050

== ENCOUNTER 2019-09-26 15:40 | Emergency (ER) | payer MEDICARE, BC ==
[2019-09-26 15:53] VITALS: BP 157/64; PULSE 78
--- NOTE | 2019-09-26 16:27 | CR ---
[id number] RAD/RAD Elbow Left 2V Exam: RAD Elbow Left 2V Indication:ELBOW PAIN AND SWELLING. Comparison: No prior imaging for comparison. Discussion: Soft tissue swelling over the olecranon. Findings are nonspecific and can be seen with contusion and/or bursitis. Triceps enthesopathy at its olecranon attachment. 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 Elevated fat pads suggesting a joint effusion. No radiographically evident fracture. No dislocation. Impression: As above. Johny Kelley MD 09/26/19 [id number] Thank you for allowing us to participate in the care of your patient.
--- NOTE | 2019-09-26 16:50 | EDM.PDOC ---
ED HPI GENERAL MEDICAL PROBLEM - General Chief Complaint: General Stated Complaint: elbow swelling left Time Seen by Provider: 09/26/19 16:15 Source of Information: Reports: Patient History Limitations: Reports: No Limitations - History of Present Illness INITIAL COMMENTS - FREE TEXT/NARRATIVE: 74-year-old male presents to the emergency room with increasing pain and swelling over the left elbow. Patient fell approximately 1 week ago when he was attempting to sit on a 6 gallon bucket stool. He accidentally kicked the bucket stool with his heel causing him to fall backwards. He struck his left elbow. He noticed some swelling immediately following the fall. He became increasingly painful and more swollen yesterday evening. The pain prompted him to be seen in the emergency room. He does notice some warmth to the elbow and increasing swelling. He denies fever or chills. He denies nausea. He denies prior trauma to the elbow. 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 He denies numbness or tingling in the arm. He denies pain in the shoulder or wrist.. Onset: Gradual Onset Date: 09/19/19 Duration: Week(s): (one), Getting Worse Location: Reports: Upper Extremity, Left (elbow) Quality: Reports: Ache, Pressure Severity: Moderate Improves with: Reports: None Worsens with: Reports: Rest (resting it on hard surface) Context: Reports: Trauma (fall onto left elbow) Associated Symptoms: Reports: No Other Symptoms Left Elbow Pain Score (Numeric/FACES): 9 - Related Data Allergies Allergy/AdvReac Type Severity Reaction Status Date / Time propoxyphene napsylate Allergy Unknown Headache Verified 08/13/18 09:20 [From Darvocet-N 100] oxycodone Allergy Hallucinati Verified 08/13/18 09:20 ons pseudoephedrine Allergy palpatation Verified 08/13/18 09:20 [From Sudafed] s Home Meds: Home Meds Bimatoprost [LUMIGAN 0.01% Ophth Soln] 1 drop EYEBOTH BEDTIME 04/15/13 [History] Rosuvastatin [Crestor] 20 mg PO BEDTIME 08/07/16 [History] Brimonidine Tartrate/Timolol [Combigan 0.2%-0.5% Eye Drops] 1 drop EYEBOTH BID 09/21/16 [History] Finasteride [Proscar] 5 mg PO DAILY 09/21/16 [History] Fluorometholone [Flarex 0.1% Ophth Susp] 1 drop EYEBOTH QAM 09/21/16 [History] Nitroglycerin 0.4 mg SL ASDIRECTED PRN 09/21/16 [History] Docusate Sodium [Colace] 100 mg PO BID cap 10/03/16 [Rx] Empagliflozin [Jardiance] 25 mg PO DAILY 04/23/18 [History] Iron Polysaccharide Complex [Iferex 150] 150 mg PO BID 04/23/18 [History] Losartan Potassium [Cozaar] 50 mg PO DAILY 04/23/18 [History] Tresiba 42 units SQ BEDTIME 04/23/18 [History] polyethylene glycoL 3350 [MiraLAX] 17 gm PO BID PRN 04/23/18 [History] Furosemide [Lasix] 20 mg PO 0800,1200 04/24/18 [History] Gabapentin [Neurontin] 600 mg PO 2100 04/24/18 [History] Magnesium Oxide 400 mg PO DAILY 04/24/18 [History] Omeprazole 40 mg PO DAILY 04/24/18 [History] metFORMIN HCl [Metformin HCl] 500 mg PO BID 04/24/18 [History] traMADol HCl [Tramadol HCl] 50 mg PO Q6H PRN 04/24/18 [History] Metoprolol Succinate [Toprol XL] 25 mg PO BID 06/03/19 [History] Warfarin Sodium [Jantoven] 5 mg PO ASDIRECTED 06/03/19 [History] Warfarin Sodium [Jantoven] 7.5 mg PO ASDIRECTED 06/03/19 [History] amLODIPine [Norvasc] 5 mg PO DAILY 06/03/19 [History] Past Medical History HEENT History: Reports: Cataract Cardiovascular History: Reports: Afib, Aneurysm, Angina, Heart Failure, High Cholesterol, Hypertension, AR, Stents Respiratory History: Reports: Intubation, Previous Gastrointestinal History: Reports: GERD Genitourinary History: Reports: Renal Calculus Musculoskeletal History: Reports: Arthritis Neurological History: Reports: None Psychiatric History: Reports: Anxiety Endocrine/Metabolic History: Reports: Diabetes, Type II Hematologic History: Reports: Anticoagulation Therapy, Blood Transfusion(s) Oncologic (Cancer) History: Reports: Basal Cell Carcinoma Other Oncologic History: skin Other Dermatologic History: skin cancer face head and ears - Infectious Disease History Infectious Disease History: Reports: Chicken Pox - Past Surgical History HEENT Surgical History: Reports: Cataract Surgery, Eye Surgery Cardiovascular Surgical History: Reports: Coronary Artery Bypass, Coronary Artery Stent Other Cardiovascular Surgeries/Procedures: s/p resection of LV aneurysm GI Surgical History: Reports: Appendectomy, Colonoscopy Neurological Surgical History: Reports: Lumbar Spine, Other (See Below) Musculoskeletal Surgical History: Reports: Knee Replacement Social & Family History - Family History Family Medical History: Noncontributory Cardiac: Reports: Bypass, AR Endocrine/Metabolic: Reports: Diabetes, type II Oncologic: Reports: Ovarian - Tobacco Use Smoking Status *Q: Never Smoker - Caffeine Use Caffeine Use: Reports: Soda Other Caffeine Use: decaf coffee - Recreational Drug Use Recreational Drug Use: No - Living Situation & Occupation Living situation: Reports: Occupation: Retired ED ROS GENERAL - Review of Systems Review Of Systems: Comprehensive ROS is negative, except as noted in HPI. ED EXAM, GENERAL - Physical Exam Exam: See Below Exam Limited By: No Limitations General Appearance: Alert, WD/WN, No Apparent Distress, Obese Ears: Hearing Grossly Normal Nose: Normal Inspection Throat/Mouth: Normal Voice, No Airway Compromise Head: Atraumatic, Normocephalic Neck: Normal Inspection Respiratory/Chest: No Respiratory Distress, Lungs Clear Cardiovascular: Regular Rate, Rhythm Back Exam: Normal Inspection Extremities: Joint Swelling (olecranon bursa swelling), Limited Range of Motion (left elbow), Increased Warmth, Other (Tenderness over the olecranon bursa to palpation elbow). No: Redness Neurological: Alert, Oriented, No Motor/Sensory Deficits Psychiatric: Normal Affect, Normal Mood Skin Exam: Warm, Dry, Intact, Increased Warmth (left elbow olecranon). No: Wound/Incision ED GENERAL MEDICAL PROCEDURES - Additional/Other Procedure(s) Other (Free Text) Procedure(s): The right elbow was entirely prepped with ChloraPrep. Under sterile conditions and gloves 6 mL of 1% lidocaine with epinephrine was injected using a 25-gauge needle into the olecranon bursa. New syringe and 18-gauge needle then was used to aspirate 8 mL of normal-appearing synovial fluid from the left elbow. Elbow was then cleansed with gauze a Band-Aid applied and a 4 inch Donnell compressive wrap over the elbow. Patient talked procedure well. Cultures were then obtained for aerobic, anaerobic, Gram stain. Course - Vital Signs Last Recorded V/S: Last Vital Signs Temp 97.4 F 09/26/19 15:48 Pulse 78 09/26/19 15:48 Resp 20 09/26/19 15:48 BP 157/64 H 09/26/19 15:48 Pulse Ox 96 09/26/19 15:48 - Orders/Labs/Meds Orders: Active Orders 24 hr Category Date Time Status C-REACTIVE PROTEIN [CHEM] Stat Lab 09/26/19 16:17 Ordered CBC WITH AUTO DIFF [HEME] Stat Lab 09/26/19 16:17 Ordered CULTURE WOUND + SMEAR [RM] Stat Lab 09/26/19 16:26 Ordered INR,PT,PROTHROMBIN TIME [COAG] Stat Lab 09/26/19 16:17 Ordered SEDIMENTATION RATE MANUAL [HEME] Stat Lab 09/26/19 16:17 Ordered Labs: Laboratory Tests 09/26/19 Range/Units 16:20 WBC 9.36 (5.00-10.00) 10^3/uL RBC 4.76 (4.50-6.00) 10^6/uL Hgb 14.2 D (13.0-17.0) g/dL Hct 44.1 (40.0-52.0) % MCV 92.6 H (82.0-92.0) fL MCH 29.8 (27.0-31.0) pg MCHC 32.2 (32.0-36.0) g/dL RDW 14.7 H (11.5-14.5) % Plt Count 166 (150-400) 10^3/uL MPV 9.5 (7.4-10.4) fL Immature Gran % (Auto) 0.1 (0.0-5.0) % Neut % (Auto) 79.0 H (50.0-70.0) % Lymph % (Auto) 10.9 L (20.0-40.0) % [place] % (Auto) 8.9 H (2.0-8.0) % Eos % (Auto) 0.7 L (1.0-3.0) % Baso % (Auto) 0.4 (0.0-1.0) % Neut # (Auto) 7.39 H (2.50-7.00) 10^3/uL Lymph # (Auto) 1.02 (1.00-4.00) 10^3/uL [place]ax # (Auto) 0.83 H (0.10-0.80) 10^3/uL Eos # (Auto) 0.07 L (0.10-0.30) 10^3/uL Baso # (Auto) 0.04 (0.00-0.10) 10^3/uL Immature Gran # (Auto) 0.01 (0.00-0.50) 10^3/uL Meds: Medications Discontinued Medications Generic Name Dose Route Start Last Admin Trade Name Freq PRN Reason Stop Dose Admin Lidocaine/Epinephrine 20 ml 09/26/19 16:21 Xylocaine 1% With Epinephrine 1:100,000 INJECT 09/26/19 16:22 ONETIME ONE - Re-Assessments/Exams Free Text/Narrative Re-Assessment/Exam: 09/26/19 16:56 Patient had some relief with the aspiration of left olecranon bursa. Departure - Departure Time of Disposition: 17:30 Disposition: Home, Self-Care 01 Condition: Good Clinical Impression: Olecranon bursitis of left elbow, Currently on parenteral anticoagulation and warfarin overlap therapy - Discharge Information Instructions: Elbow Bursitis Referrals: Zonia Harrison MD [Primary Care Provider] - Sepsis Event Note - Evaluation Sepsis Screening Result: No Definite Risk - Focused Exam Vital Signs: Vital Signs Temp Pulse Resp BP Pulse Ox 09/26/19 15:48 97.4 F 78 20 157/64 H 96 Date Exam was Performed: 09/26/19 Time Exam was Performed: 16:44 - My Orders Last 24 Hours: My Active Orders 09/26/19 16:17 C-REACTIVE PROTEIN [CHEM] Stat CBC WITH AUTO DIFF [HEME] Stat INR,PT,PROTHROMBIN TIME [COAG] Stat SEDIMENTATION RATE MANUAL [HEME] Stat 09/26/19 16:26 CULTURE WOUND + SMEAR [RM] Stat - Assessment/Plan Last 24 Hours: My Active Orders 09/26/19 16:17 C-REACTIVE PROTEIN [CHEM] Stat CBC WITH AUTO DIFF [HEME] Stat INR,PT,PROTHROMBIN TIME [COAG] Stat SEDIMENTATION RATE MANUAL [HEME] Stat 09/26/19 16:26 CULTURE WOUND + SMEAR [RM] Stat Assessment:: Left elbow olecranon bursitis Plan: 1. Cultures will be taken for left elbow olecranon bursitis. Gram stain, aerobic , anaerobic cultures from aspiration of left olecranon bursitis. 2. Duricef 500 mg twice a day for 7 days. 3. Follow-up with your primary care next week for follow-up culture results. 4. Compressive wrap left elbow was applied. May take this off and reapply after showers. 5. If pain, discomfort persist or evidence of a septic olecranon bursitis occurs orthopedic consultation for excision of olecranon bursa was discussed with the patient.
[2019-09-26] MEDS: Lidocaine 1% with EPINEPHrine 1:100,000 20 ML MDV INJECT ONE (17:01)
[2019-09-26] MEDS: Cefadroxil 500 MG Cap PO ONE (19:29)
== END 2019-09-26 17:25 | disposition home or self-care (01) ==
LOC: KA.ED 15:40
DX: M70.22 Olecranon bursitis, left elbow (principal); I48.91 Unspecified atrial fibrillation; E78.00 Pure hypercholesterolemia, unspecified; I11.0 Hypertensive heart disease with heart failure; I50.9 Heart failure, unspecified; I25.2 Old myocardial infarction; K21.9 Gastro-esophageal reflux disease without esophagitis; E11.9 Type 2 diabetes mellitus without complications; F41.9 Anxiety disorder, unspecified; Z88.5 Allergy status to narcotic agent; Z88.8 Allergy status to other drugs, medicaments and biological substances; Z79.899 Other long term (current) drug therapy; Z95.5 Presence of coronary angioplasty implant and graft; Z79.01 Long term (current) use of anticoagulants; Z79.4 Long term (current) use of insulin
CPT/HCPCS: 20610; 36415; 73070-LT; 85025; 85610; 85651; 86140; 87070; 87205; 99283; 99284

== ENCOUNTER 2020-06-20 14:06 | Inpatient (IN) | payer MEDICARE, BC ==
[2020-06-20] MEDS ORDERED: Melatonin 3 MG Tab PO PRN (16:08)
[2020-06-20] MEDS ORDERED: Nitroglycerin 0.4 MG Tab.SL SL PRN (16:08)
[2020-06-20] MEDS ORDERED: Carboxymethylcellulose Sodium 0.5% Ophth Soln 15 ML Bottle EYEBOTH PRN (16:08)
[2020-06-20] MEDS ORDERED: Calcium Carbonate 500 MG Tab.Chew PO PRN (16:08)
[2020-06-20] MEDS ORDERED: Furosemide 20 MG Tab ONE (17:06)
[2020-06-20] MEDS: Furosemide 20 MG Tab PO SCH (17:08)
[2020-06-20] MEDS: metFORMIN 500 MG Tab PO SCH (17:51)
[2020-06-20] MEDS: amLODIPine 5 MG Tab PO SCH (17:52)
[2020-06-20] MEDS ORDERED: Warfarin 2.5 MG Tab PO SCH (18:00)
[2020-06-20] MEDS: oxyCODONE 5 MG Tab PO PRN ×2 (19:11→23:35)
[2020-06-20] MEDS: Timolol Maleate 0.5% Ophth Soln 5 ML Bottle EYEBOTH SCH (20:46)
[2020-06-20] MEDS: TRESIBA SQ SCH (20:46)
[2020-06-20] MEDS: Metoprolol Succinate 25 MG Tab.ER PO SCH (20:47)
[2020-06-20] MEDS: Gabapentin 300 MG Cap PO SCH (20:48)
[2020-06-20] MEDS: Rosuvastatin 10 MG Tab PO SCH (20:49)
[2020-06-20] MEDS: Tamsulosin 0.4 MG Cap.ER PO SCH (20:49)
[2020-06-20] MEDS: Brimonidine 0.2% Ophth Soln 15 ML Bottle EYEBOTH SCH (20:51)
[2020-06-20] MEDS: Latanoprost 0.005% Ophth Soln 2.5 ML Bottle EYEBOTH SCH (20:54)
[2020-06-20] MEDS: LORazepam 0.5 MG Tab PO SCH (20:54)
[2020-06-20] MEDS: Acetaminophen 325 MG Tab PO PRN (20:57)
[2020-06-21] MEDS: Omeprazole 20 MG Cap.CR PO SCH (07:32)
[2020-06-21] MEDS: Finasteride 5 MG Tab PO SCH (08:26)
[2020-06-21] MEDS: Metoprolol Succinate 25 MG Tab.ER PO SCH ×2 (08:26→20:59)
[2020-06-21] MEDS: Furosemide 20 MG Tab PO SCH ×2 (08:26→15:50)
[2020-06-21] MEDS: Iron Polysaccharides Complex 150 MG Cap PO SCH ×2 (08:26→11:50)
[2020-06-21] MEDS: Losartan 25 MG Tab PO SCH (08:26)
[2020-06-21] MEDS: metFORMIN 500 MG Tab PO SCH ×2 (08:27→17:34)
[2020-06-21] MEDS: Brimonidine 0.2% Ophth Soln 15 ML Bottle EYEBOTH SCH ×2 (08:31→21:05)
[2020-06-21] MEDS: Timolol Maleate 0.5% Ophth Soln 5 ML Bottle EYEBOTH SCH ×2 (08:31→21:05)
[2020-06-21] MEDS: Fluorometholone 0.1% Ophth Susp 5 ML Bottle EYEBOTH SCH (08:43)
[2020-06-21] MEDS: oxyCODONE 5 MG Tab PO PRN ×3 (09:47→15:15)
[2020-06-21] MEDS: Magnesium Oxide 500 MG Tab PO SCH (11:50)
[2020-06-21] MEDS: Aspirin 81 MG Tab.EC PO SCH (11:51)
--- NOTE | 2020-06-21 12:13 | HP ---
HISTORY OF PRESENT ILLNESS: This is a 75-year-old male who is being transferred today from [facility] for swing bed care and rehabilitation following a right total knee arthroplasty on 06/15/2020. The patient does have a history of atrial fibrillation, status post pulmonary vein isolation ablation and is on anticoagulation with Coumadin. He also has diabetes mellitus type 2, coronary artery disease, and is status post CABG. He was discharged from the hospital briefly. On his way home, he developed acute right leg pain. He presented back to the hospital and was found to have a deep venous thrombosis in the right distal femoral, popliteal, posterior tibial, and peroneal vein on ultrasound. This is quite surprising due to the fact that the patient was discharged on anticoagulation with Lovenox bridging. The patient's INR was subtherapeutic when the blood clot occurred. Lovenox was discontinued once the INR was therapeutic. Today, the INR is 2.1. The patient is in good spirits. His pain is well controlled. He states that he was getting p.r.n. Dilaudid and after just 2 doses, he seemed to be doing much better as far as pain control. The patient does have mild anemia with a hemoglobin of 9.1 with no overt signs of bleeding. He is taking aspirin, metoprolol. CAD, status post CABG. He does have chronic congestive heart failure with an ejection fraction of 40% to 45%. He is taking metoprolol, losartan and Lasix for the same. He does have atrial fibrillation and is on long-term anticoagulation with Coumadin as well as a beta barron. He does have hyperlipidemia and is on Crestor. He has hypertension and his blood pressure is within goal. He will continue amlodipine, losartan, and metoprolol. Diabetes type 2. He is on Lantus and a correction scale insulin. He is also on Jardiance. He does have BPH and will continue taking Flomax and finasteride. He does have a history of glaucoma and is using eyedrops for the same. He does have anxiety and is taking Ativan at bedtime. He does have obesity with a BMI of 32.7. The patient's physician, Rachelle March MD, called me herself with direct provider to provider report in regard to this patient. That is an unusual occurrence and was much appreciated. The patient does have an ice machine at home and his son is going to bring that. They found out that he was allergic to Xeroform that was used for dressing changes. He is just on an ABD with Donnell wrap now. Incision looks very good. PHYSICAL EXAMINATION: VITAL SIGNS: Temperature is 96.9, pulse 86, respirations 16, blood pressure 135/58, O2 saturation 95% on room air. SKIN: Warm and dry to touch. CARDIAC: An irregularly irregular rhythm. No murmur, click, or gallop is auscultated. LUNGS: Clear without rales, wheezes, or rhonchi. ABDOMEN: Soft, nontender. Bowel sounds present in all 4 quadrants. EXTREMITIES: There is right knee swelling, which is postoperative in nature. IMAGING: There was an x-ray performed prior to his discharge of the right knee and there was found to be a large joint effusion. There was subcutaneous air, which was thought to be related to postoperative changes. IMPRESSION: 1. Status post right knee arthroplasty, here for physical therapy and rehabilitation in swing bed with an admission date of 06/20/2020. 2. Right lower extremity deep venous thrombosis, on anticoagulation. 3. Atrial fibrillation, rate controlled. 4. Hyperlipidemia, on statin. 5. Hypertension, at goal. 6. BPH, stable. 7. Diabetes mellitus type 2, stable. 8. Coronary artery disease, status post CABG and atrial fibrillation. These are stable as well. We will continue to follow him in swing bed. He will receive a physical therapy evaluation. His son will bring his ice machine from home. /[id number]/MODL
[2020-06-21] MEDS: amLODIPine 5 MG Tab PO SCH (17:33)
[2020-06-21] MEDS ORDERED: Warfarin 2.5 MG Tab PO ONE (18:00)
[2020-06-21] MEDS: Acetaminophen 325 MG Tab PO PRN (18:24)
[2020-06-21] MEDS: cefTRIAXone 1 GM Vial IVPUSH SCH (20:56)
[2020-06-21] MEDS: Gabapentin 300 MG Cap PO SCH (20:59)
[2020-06-21] MEDS: LORazepam 0.5 MG Tab PO SCH (20:59)
[2020-06-21] MEDS: Tamsulosin 0.4 MG Cap.ER PO SCH (20:59)
[2020-06-21] MEDS: Rosuvastatin 10 MG Tab PO SCH (20:59)
[2020-06-21] MEDS: [UNRECOGNIZED DRUG - OTHER] TOP SCH (21:05)
[2020-06-21] MEDS: Latanoprost 0.005% Ophth Soln 2.5 ML Bottle EYEBOTH SCH (21:06)
[2020-06-21] MEDS: TRESIBA SQ SCH (21:06)
[2020-06-22] MEDS: oxyCODONE 5 MG Tab PO PRN ×3 (06:27→17:47)
[2020-06-22] MEDS: Omeprazole 20 MG Cap.CR PO SCH ×2 (06:28→08:05)
[2020-06-22] MEDS: Finasteride 5 MG Tab PO SCH (08:01)
[2020-06-22] MEDS: Losartan 25 MG Tab PO SCH (08:02)
[2020-06-22] MEDS: Iron Polysaccharides Complex 150 MG Cap PO SCH ×2 (08:03→11:49)
[2020-06-22] MEDS: Metoprolol Succinate 25 MG Tab.ER PO SCH ×2 (08:03→21:26)
[2020-06-22] MEDS: Furosemide 20 MG Tab PO SCH ×2 (08:04→16:47)
[2020-06-22] MEDS: metFORMIN 500 MG Tab PO SCH ×2 (08:04→17:48)
[2020-06-22] MEDS: Timolol Maleate 0.5% Ophth Soln 5 ML Bottle EYEBOTH SCH ×2 (08:08→21:29)
[2020-06-22] MEDS: Brimonidine 0.2% Ophth Soln 15 ML Bottle EYEBOTH SCH ×2 (08:08→21:24)
[2020-06-22] MEDS: Fluorometholone 0.1% Ophth Susp 5 ML Bottle EYEBOTH SCH (08:08)
[2020-06-22] MEDS: Acetaminophen 325 MG Tab PO PRN (08:25)
[2020-06-22] MEDS: Magnesium Oxide 500 MG Tab PO SCH (11:49)
[2020-06-22] MEDS: Aspirin 81 MG Tab.EC PO SCH (11:49)
[2020-06-22] MEDS: amLODIPine 5 MG Tab PO SCH (17:48)
[2020-06-22] MEDS ORDERED: Warfarin 2.5 MG Tab PO ONE (18:00)
[2020-06-22] MEDS: Tamsulosin 0.4 MG Cap.ER PO SCH (21:26)
[2020-06-22] MEDS: LORazepam 0.5 MG Tab PO SCH (21:26)
[2020-06-22] MEDS: Rosuvastatin 10 MG Tab PO SCH (21:26)
[2020-06-22] MEDS: Gabapentin 300 MG Cap PO SCH (21:26)
[2020-06-22] MEDS: [UNRECOGNIZED DRUG - OTHER] TOP SCH (21:29)
[2020-06-22] MEDS: cefTRIAXone 1 GM Vial IVPUSH SCH (21:34)
[2020-06-22] MEDS: Sodium Chloride 0.9% 10 ML Syringe FLUSH PRN (21:38)
[2020-06-22] MEDS: TRESIBA SQ SCH (21:39)
[2020-06-22] MEDS: Latanoprost 0.005% Ophth Soln 2.5 ML Bottle EYEBOTH SCH (21:39)
[2020-06-23] MEDS: Omeprazole 20 MG Cap.CR PO SCH (06:43)
[2020-06-23] MEDS: Iron Polysaccharides Complex 150 MG Cap PO SCH ×2 (08:36→12:02)
[2020-06-23] MEDS: Finasteride 5 MG Tab PO SCH (08:36)
[2020-06-23] MEDS: Losartan 25 MG Tab PO SCH (08:37)
[2020-06-23] MEDS: Metoprolol Succinate 25 MG Tab.ER PO SCH ×2 (08:37→20:39)
[2020-06-23] MEDS: Furosemide 20 MG Tab PO SCH ×2 (08:37→15:25)
[2020-06-23] MEDS: metFORMIN 500 MG Tab PO SCH ×2 (08:37→18:08)
[2020-06-23] MEDS: Timolol Maleate 0.5% Ophth Soln 5 ML Bottle EYEBOTH SCH ×2 (08:38→20:44)
[2020-06-23] MEDS: Brimonidine 0.2% Ophth Soln 15 ML Bottle EYEBOTH SCH ×2 (08:39→20:43)
[2020-06-23] MEDS: Fluorometholone 0.1% Ophth Susp 5 ML Bottle EYEBOTH SCH (08:39)
[2020-06-23] MEDS: oxyCODONE 5 MG Tab PO PRN ×2 (09:45→21:14)
[2020-06-23] MEDS: HYDROmorphone 1 MG/ML Syringe IVPUSH PRN (10:54)
[2020-06-23] MEDS: Acetaminophen 325 MG Tab PO PRN (11:59)
--- NOTE | 2020-06-23 12:01 | PN ---
06/22/2020 PATIENT NAME: AMBER QUINTANILLA SUBJECTIVE: He was admitted to swing bed on 06/21/2020. I did not have an opportunity to observe his incision upon admission. Today, I was able to look at it. He had some sort of allergic reaction to one of the dressings and I am unclear of which dressing it exactly was, however, he has erythema surrounding the incision itself and there are blisters as well. The incision itself is intact. There is obviously a joint effusion from postoperative changes. He also has some ecchymosis on the inside of his right leg extending all the way down to the ankle. This is secondary to postoperative changes. Also, he had a DVT postoperatively. He is now receiving a Telfa/ABD and then Donnell wrap dressing changes on a daily basis. We did draw blood cultures because he had a fever on the evening of 06/21/2020. There has been no growth after one day. He is being treated empirically with Rocephin 1 g IV on a daily basis. /[id number]/MODL
[2020-06-23] MEDS: Magnesium Oxide 500 MG Tab PO SCH (12:02)
[2020-06-23] MEDS: Aspirin 81 MG Tab.EC PO SCH (12:02)
[2020-06-23] MEDS: amLODIPine 5 MG Tab PO SCH (18:08)
[2020-06-23] MEDS: Gabapentin 300 MG Cap PO SCH (20:39)
[2020-06-23] MEDS: cefTRIAXone 1 GM Vial IVPUSH SCH (20:39)
[2020-06-23] MEDS: LORazepam 0.5 MG Tab PO SCH (20:39)
[2020-06-23] MEDS: Rosuvastatin 10 MG Tab PO SCH (20:43)
[2020-06-23] MEDS: [UNRECOGNIZED DRUG - OTHER] TOP SCH (20:43)
[2020-06-23] MEDS: Tamsulosin 0.4 MG Cap.ER PO SCH (20:43)
[2020-06-23] MEDS: Latanoprost 0.005% Ophth Soln 2.5 ML Bottle EYEBOTH SCH (20:44)
[2020-06-23] MEDS: TRESIBA SQ SCH (20:47)
[2020-06-23] MEDS: Sodium Chloride 0.9% 10 ML Syringe FLUSH PRN (20:51)
[2020-06-24] MEDS: Omeprazole 20 MG Cap.CR PO SCH (07:44)
[2020-06-24] MEDS: metFORMIN 500 MG Tab PO SCH ×2 (08:18→17:38)
[2020-06-24] MEDS: Iron Polysaccharides Complex 150 MG Cap PO SCH ×2 (08:18→12:16)
[2020-06-24] MEDS: Furosemide 20 MG Tab PO SCH ×2 (08:18→15:23)
[2020-06-24] MEDS: Losartan 25 MG Tab PO SCH (08:19)
[2020-06-24] MEDS: Metoprolol Succinate 25 MG Tab.ER PO SCH ×2 (08:19→22:12)
[2020-06-24] MEDS: Timolol Maleate 0.5% Ophth Soln 5 ML Bottle EYEBOTH SCH ×2 (08:20→21:39)
[2020-06-24] MEDS: Fluorometholone 0.1% Ophth Susp 5 ML Bottle EYEBOTH SCH (08:21)
[2020-06-24] MEDS: Brimonidine 0.2% Ophth Soln 15 ML Bottle EYEBOTH SCH ×2 (08:21→21:32)
[2020-06-24] MEDS: Finasteride 5 MG Tab PO SCH (08:27)
[2020-06-24] MEDS: oxyCODONE 5 MG Tab PO PRN ×2 (09:28→16:14)
[2020-06-24] MEDS: Magnesium Oxide 500 MG Tab PO SCH (12:16)
[2020-06-24] MEDS: Aspirin 81 MG Tab.EC PO SCH (12:17)
[2020-06-24] MEDS: amLODIPine 5 MG Tab PO SCH (17:37)
[2020-06-24] MEDS ORDERED: Warfarin 5 MG Tab PO ONE (18:00)
[2020-06-24] MEDS: HYDROmorphone 1 MG/ML Syringe IVPUSH PRN (21:33)
[2020-06-24] MEDS: Sodium Chloride 0.9% 10 ML Syringe FLUSH PRN (21:38)
[2020-06-24] MEDS: cefTRIAXone 1 GM Vial IVPUSH SCH (21:42)
[2020-06-24] MEDS: Latanoprost 0.005% Ophth Soln 2.5 ML Bottle EYEBOTH SCH (21:47)
[2020-06-24] MEDS ORDERED: 50% Dextrose in Water 50 ML Syringe IV PRN (22:01)
[2020-06-24] MEDS ORDERED: Glucagon,Human Recombinant 1 MG Vial IM PRN (22:01)
[2020-06-24] MEDS: Tamsulosin 0.4 MG Cap.ER PO SCH (22:12)
[2020-06-24] MEDS: LORazepam 0.5 MG Tab PO SCH (22:13)
[2020-06-24] MEDS: Rosuvastatin 10 MG Tab PO SCH (22:13)
[2020-06-24] MEDS: Gabapentin 300 MG Cap PO SCH (22:13)
[2020-06-24] MEDS: [UNRECOGNIZED DRUG - OTHER] TOP SCH (22:15)
[2020-06-24] MEDS: TRESIBA SQ SCH (22:15)
[2020-06-24] MEDS: Insulin Glargine,Human Rec. Analog 100 Units/ML 3 ML Pen SUBCUT SCH (22:20)
[2020-06-25] MEDS: Omeprazole 20 MG Cap.CR PO SCH (06:31)
[2020-06-25] MEDS: Metoprolol Succinate 25 MG Tab.ER PO SCH ×2 (08:25→21:49)
[2020-06-25] MEDS: Iron Polysaccharides Complex 150 MG Cap PO SCH ×2 (08:26→12:30)
[2020-06-25] MEDS: Losartan 25 MG Tab PO SCH (08:27)
[2020-06-25] MEDS: Finasteride 5 MG Tab PO SCH (08:28)
[2020-06-25] MEDS: Furosemide 20 MG Tab PO SCH ×2 (08:28→15:53)
[2020-06-25] MEDS: metFORMIN 500 MG Tab PO SCH ×2 (08:28→17:27)
[2020-06-25] MEDS: Fluorometholone 0.1% Ophth Susp 5 ML Bottle EYEBOTH SCH (08:29)
[2020-06-25] MEDS: Brimonidine 0.2% Ophth Soln 15 ML Bottle EYEBOTH SCH ×2 (08:30→21:50)
[2020-06-25] MEDS: Timolol Maleate 0.5% Ophth Soln 5 ML Bottle EYEBOTH SCH ×2 (08:30→21:50)
[2020-06-25] MEDS: oxyCODONE 5 MG Tab PO PRN ×2 (08:36→22:29)
[2020-06-25] MEDS: Aspirin 81 MG Tab.EC PO SCH (12:29)
[2020-06-25] MEDS: Magnesium Oxide 500 MG Tab PO SCH (12:29)
[2020-06-25] MEDS: amLODIPine 5 MG Tab PO SCH (17:27)
[2020-06-25] MEDS ORDERED: Warfarin 2.5 MG Tab PO ONE (18:00)
[2020-06-25] MEDS ORDERED: Warfarin 5 MG Tab PO SCH (18:00)
[2020-06-25] MEDS: Rosuvastatin 10 MG Tab PO SCH (21:48)
[2020-06-25] MEDS: LORazepam 0.5 MG Tab PO SCH (21:48)
[2020-06-25] MEDS: Tamsulosin 0.4 MG Cap.ER PO SCH (21:48)
[2020-06-25] MEDS: Gabapentin 300 MG Cap PO SCH (21:49)
[2020-06-25] MEDS: Latanoprost 0.005% Ophth Soln 2.5 ML Bottle EYEBOTH SCH (21:50)
[2020-06-25] MEDS: [UNRECOGNIZED DRUG - OTHER] TOP SCH (21:50)
[2020-06-25] MEDS: cefTRIAXone 1 GM Vial IVPUSH SCH (21:50)
[2020-06-25] MEDS: Insulin Glargine,Human Rec. Analog 100 Units/ML 3 ML Pen SUBCUT SCH (21:52)
[2020-06-25] MEDS: TRESIBA SQ SCH (21:57)
[2020-06-25] MEDS: Sodium Chloride 0.9% 10 ML Syringe FLUSH PRN (22:00)
[2020-06-26] MEDS: oxyCODONE 5 MG Tab PO PRN ×4 (06:39→22:00)
[2020-06-26] MEDS: Omeprazole 20 MG Cap.CR PO SCH (06:40)
[2020-06-26] MEDS: Timolol Maleate 0.5% Ophth Soln 5 ML Bottle EYEBOTH SCH ×2 (08:07→20:50)
[2020-06-26] MEDS: Fluorometholone 0.1% Ophth Susp 5 ML Bottle EYEBOTH SCH (08:07)
[2020-06-26] MEDS: Brimonidine 0.2% Ophth Soln 15 ML Bottle EYEBOTH SCH ×2 (08:07→20:50)
[2020-06-26] MEDS: Finasteride 5 MG Tab PO SCH (08:08)
[2020-06-26] MEDS: metFORMIN 500 MG Tab PO SCH ×2 (08:08→17:47)
[2020-06-26] MEDS: Furosemide 20 MG Tab PO SCH ×2 (08:08→16:09)
[2020-06-26] MEDS: Metoprolol Succinate 25 MG Tab.ER PO SCH ×2 (08:08→20:54)
[2020-06-26] MEDS: Iron Polysaccharides Complex 150 MG Cap PO SCH ×2 (08:08→11:57)
[2020-06-26] MEDS: Losartan 25 MG Tab PO SCH (08:08)
[2020-06-26] MEDS: Enoxaparin 100 MG/1 ML Syringe SUBCUT SCH ×2 (10:26→20:48)
[2020-06-26] MEDS: Polyethylene Glycol 3350 Powder 17 GM Packet PO PRN (10:26)
[2020-06-26 10:45] LABS: ANION GAP 11.7 mmol/L (5-15); CHLORIDE,CL 102 mmol/L (98-107); SODIUM,NA 139 mmol/L (136-145)
[2020-06-26] MEDS: Aspirin 81 MG Tab.EC PO SCH (11:56)
[2020-06-26] MEDS: Magnesium Oxide 500 MG Tab PO SCH (11:57)
--- NOTE | 2020-06-26 15:51 | PN ---
PATIENT NAME: AMBER QUINTANILLA SUBJECTIVE: This is a 75-year-old patient who was admitted to [facility] on 06/20/2020. He was transferred [facility] bed care and rehabilitation following a right total knee arthroplasty which was performed on 06/15/[address] Byron Lugo. The patient has a history of atrial fibrillation, status post pulmonary vein isolation ablation and is on anticoagulation with Coumadin. He also has diabetes mellitus type 2, coronary artery disease and status post CABG. He was discharged from the hospital briefly. On his way home, he developed acute right leg pain. He presented back to the hospital, was found to have a deep vein thrombosis in the right distal femoral, popliteal, posterior tibial, and peroneal vein on ultrasound. This was quite surprising due to the fact that the patient was discharged on anticoagulation with Lovenox bridging. The patient's INR was subtherapeutic when the blood clot occurred. It was 1.9 when he was readmitted to the hospital. We have been having a difficult time regulating his INR. On Friday, 06/23, his INR was 3.5. This was dosed by pharmacy and the nurse's staff was instructed to hold the Coumadin. On Friday, his INR was 2.5 and he received 5 mg of Coumadin. On Friday, it was 2.1 and he received 7.5. Today his INR is 1.7. I did consult with the pharmacist who recommended he go back on enoxaparin or Lovenox 100 mg subcu b.i.d. He will need to have a CBC and a CMP prior to starting back on the Lovenox, namely a platelet count and a creatinine clearance. The patient has not had lab work since he has been admitted since it was not indicated. He has only had daily INRs and glucose monitoring. He is taking aspirin, metoprolol. He has CAD and is status post CABG. He does have chronic congestive heart failure with ejection fraction of 40% to 45%. He is taking metoprolol, losartan and Lasix for the same. He does have atrial fibrillation, is on long-term anticoagulation with Coumadin as well as a beta barron. He does have hyperlipidemia and is on Crestor. He has hypertension and his blood pressure is within goal. We will continue amlodipine, losartan, and metoprolol. Diabetes type 2. He is on Tresiba and actually we ran out of it and he was substituted with Lantus, which is a one-to-one conversion. He does have BPH and will continue taking Flomax and finasteride. He has a history of glaucoma and is using eyedrops for the same. He does have anxiety and is taking Ativan at bedtime. He does have obesity with a BMI of 32.7. The patient does have excoriation surrounding his incision of the right knee. He was found to be allergic to a dressing that was used and I was under the understanding it was Xeroform. He has a Telfa with ABD and Donnell wrap now. OBJECTIVE: VITAL SIGNS: Stable. SKIN: Warm and dry to touch. CARDIAC: Reveals irregularly irregular rhythm. No murmur, click, or gallop is auscultated. LUNGS: Clear without rales, wheezes, or rhonchi. ABDOMEN: Soft, nontender. Bowel sounds present in all four quadrants. EXTREMITIES: There is right knee swelling. There is excoriation on either side. There was a blister which was lanced yesterday. It does not look erythematous. It does not appear to be warm to touch. There is no drainage. He is being covered with Rocephin 1 g IV daily. He did have a fever on 06/21/2020. Blood cultures were drawn and there has been no growth from them. We will continue treating him empirically with Rocephin 1 g IV on a daily basis. IMPRESSION: 1. Status post right knee arthroplasty, here for physical therapy and rehabilitation in swing bed with an admission date of 06/20/2020. 2. Right lower extremity deep vein thrombosis, on anticoagulation. 3. Atrial fibrillation, rate controlled. 4. Hyperlipidemia, on statin. 5. Hypertension, at goal. 6. Benign prostatic hypertrophy, stable. 7. Diabetes mellitus type 2, stable. 8. Coronary artery disease status post CABG and atrial fibrillation. These are stable as well. 9. Difficulty titrating Coumadin with subtherapeutic INR. I did consult with pharmacy. We did decide to start the patient on enoxaparin also known as Lovenox 100 mg b.i.d. He will have a CBC and a CMP drawn today. 10.The patient is complaining of constipation today. I did order MiraLAX for him. We will continue to monitor him in swing bed care. /[id number]/MODL
[2020-06-26] MEDS: amLODIPine 5 MG Tab PO SCH (17:49)
[2020-06-26] MEDS ORDERED: Warfarin 2.5 MG Tab PO ONE (18:00)
[2020-06-26] MEDS: cefTRIAXone 1 GM Vial IVPUSH SCH (20:45)
[2020-06-26] MEDS: LORazepam 0.5 MG Tab PO SCH (20:46)
[2020-06-26] MEDS: Gabapentin 300 MG Cap PO SCH (20:47)
[2020-06-26] MEDS: [UNRECOGNIZED DRUG - OTHER] TOP SCH (20:52)
[2020-06-26] MEDS: Rosuvastatin 10 MG Tab PO SCH (21:01)
[2020-06-26] MEDS: Tamsulosin 0.4 MG Cap.ER PO SCH (21:02)
[2020-06-26] MEDS: Latanoprost 0.005% Ophth Soln 2.5 ML Bottle EYEBOTH SCH (21:03)
[2020-06-26] MEDS: TRESIBA SQ SCH (22:00)
[2020-06-27] MEDS: Omeprazole 20 MG Cap.CR PO SCH (07:55)
[2020-06-27] MEDS: Furosemide 20 MG Tab PO SCH ×2 (07:55→15:50)
[2020-06-27] MEDS: Iron Polysaccharides Complex 150 MG Cap PO SCH ×2 (07:55→12:03)
[2020-06-27] MEDS: metFORMIN 500 MG Tab PO SCH ×2 (07:55→18:06)
[2020-06-27] MEDS: Brimonidine 0.2% Ophth Soln 15 ML Bottle EYEBOTH SCH ×2 (08:05→22:29)
[2020-06-27] MEDS: Losartan 25 MG Tab PO SCH (08:05)
[2020-06-27] MEDS: Finasteride 5 MG Tab PO SCH (08:06)
[2020-06-27] MEDS: Timolol Maleate 0.5% Ophth Soln 5 ML Bottle EYEBOTH SCH ×2 (08:06→22:25)
[2020-06-27] MEDS: Metoprolol Succinate 25 MG Tab.ER PO SCH ×2 (08:06→22:38)
[2020-06-27] MEDS: Fluorometholone 0.1% Ophth Susp 5 ML Bottle EYEBOTH SCH (08:06)
[2020-06-27] MEDS: Enoxaparin 100 MG/1 ML Syringe SUBCUT SCH ×2 (08:06→22:33)
[2020-06-27] MEDS: Polyethylene Glycol 3350 Powder 17 GM Packet PO PRN (08:07)
[2020-06-27] MEDS: Magnesium Hydroxide 400 MG/5 ML Susp 30 ML Cup PO PRN (08:11)
[2020-06-27] MEDS: oxyCODONE 5 MG Tab PO PRN ×4 (09:48→22:36)
[2020-06-27] MEDS: Acetaminophen 325 MG Tab PO PRN ×2 (09:48→15:49)
[2020-06-27] MEDS: Magnesium Oxide 500 MG Tab PO SCH (12:03)
[2020-06-27] MEDS: Aspirin 81 MG Tab.EC PO SCH (12:03)
[2020-06-27] MEDS ORDERED: Bisacodyl 10 MG Supp RECTAL PRN (15:58)
[2020-06-27] MEDS ORDERED: Warfarin 5 MG Tab PO ONE ×2 (18:00)
[2020-06-27] MEDS: amLODIPine 5 MG Tab PO SCH (18:06)
[2020-06-27] MEDS: cefTRIAXone 1 GM Vial IVPUSH SCH (22:25)
[2020-06-27] MEDS: Latanoprost 0.005% Ophth Soln 2.5 ML Bottle EYEBOTH SCH (22:36)
[2020-06-27] MEDS: Gabapentin 300 MG Cap PO SCH (22:37)
[2020-06-27] MEDS: Tamsulosin 0.4 MG Cap.ER PO SCH (22:40)
[2020-06-27] MEDS: LORazepam 0.5 MG Tab PO SCH (22:40)
[2020-06-27] MEDS: Rosuvastatin 10 MG Tab PO SCH (22:40)
[2020-06-27] MEDS: TRESIBA SQ SCH (22:43)
[2020-06-27] MEDS: [UNRECOGNIZED DRUG - OTHER] TOP SCH (22:43)
[2020-06-28] MEDS: Iron Polysaccharides Complex 150 MG Cap PO SCH ×2 (07:38→11:53)
[2020-06-28] MEDS: metFORMIN 500 MG Tab PO SCH ×2 (07:38→18:10)
[2020-06-28] MEDS: Furosemide 20 MG Tab PO SCH ×2 (07:38→15:29)
[2020-06-28] MEDS: Omeprazole 20 MG Cap.CR PO SCH (07:38)
[2020-06-28] MEDS: oxyCODONE 5 MG Tab PO PRN ×2 (07:52→19:27)
[2020-06-28] MEDS: Finasteride 5 MG Tab PO SCH (08:24)
[2020-06-28] MEDS: Enoxaparin 100 MG/1 ML Syringe SUBCUT SCH ×2 (08:24→20:34)
[2020-06-28] MEDS: Metoprolol Succinate 25 MG Tab.ER PO SCH ×2 (08:25→20:34)
[2020-06-28] MEDS: Losartan 25 MG Tab PO SCH (08:26)
[2020-06-28] MEDS: Brimonidine 0.2% Ophth Soln 15 ML Bottle EYEBOTH SCH ×2 (08:28→20:41)
[2020-06-28] MEDS: Fluorometholone 0.1% Ophth Susp 5 ML Bottle EYEBOTH SCH (08:29)
[2020-06-28] MEDS: Timolol Maleate 0.5% Ophth Soln 5 ML Bottle EYEBOTH SCH ×2 (08:30→20:41)
[2020-06-28] MEDS: Aspirin 81 MG Tab.EC PO SCH (11:52)
[2020-06-28] MEDS: Magnesium Oxide 500 MG Tab PO SCH (11:53)
[2020-06-28] MEDS: Phenol 1.4% Oral Spray 177 ML Bottle MUCMEM PRN ×2 (11:53→15:26)
[2020-06-28] MEDS ORDERED: Menthol 7.6 MG Sugar Free Lozenge PO PRN (16:05)
[2020-06-28] MEDS ORDERED: Warfarin 2.5 MG Tab PO SCH (18:00)
[2020-06-28] MEDS: amLODIPine 5 MG Tab PO SCH (18:10)
[2020-06-28] MEDS: cefTRIAXone 1 GM Vial IVPUSH SCH (19:31)
[2020-06-28] MEDS: Acetaminophen 325 MG Tab PO PRN (20:32)
[2020-06-28] MEDS: Tamsulosin 0.4 MG Cap.ER PO SCH (20:33)
[2020-06-28] MEDS: Rosuvastatin 10 MG Tab PO SCH (20:33)
[2020-06-28] MEDS: Gabapentin 300 MG Cap PO SCH (20:33)
[2020-06-28] MEDS: LORazepam 0.5 MG Tab PO SCH (20:33)
[2020-06-28] MEDS: [UNRECOGNIZED DRUG - OTHER] TOP SCH (20:40)
[2020-06-28] MEDS: Latanoprost 0.005% Ophth Soln 2.5 ML Bottle EYEBOTH SCH (20:41)
[2020-06-28] MEDS: TRESIBA SQ SCH (20:46)
[2020-06-29] MEDS: oxyCODONE 5 MG Tab PO PRN ×3 (00:52→12:51)
[2020-06-29] MEDS: Furosemide 20 MG Tab PO SCH (07:17)
[2020-06-29] MEDS: Omeprazole 20 MG Cap.CR PO SCH (07:17)
[2020-06-29] MEDS: Iron Polysaccharides Complex 150 MG Cap PO SCH ×2 (07:17→11:58)
[2020-06-29] MEDS: metFORMIN 500 MG Tab PO SCH (07:17)
[2020-06-29] MEDS: Magnesium Hydroxide 400 MG/5 ML Susp 30 ML Cup PO PRN (08:06)
[2020-06-29] MEDS: Enoxaparin 100 MG/1 ML Syringe SUBCUT SCH (08:06)
[2020-06-29] MEDS: Metoprolol Succinate 25 MG Tab.ER PO SCH (08:10)
[2020-06-29] MEDS: Finasteride 5 MG Tab PO SCH (08:10)
[2020-06-29] MEDS: Losartan 25 MG Tab PO SCH (08:10)
[2020-06-29 08:11] VITALS: BP 126/48; PULSE 73
[2020-06-29] MEDS: Brimonidine 0.2% Ophth Soln 15 ML Bottle EYEBOTH SCH (08:12)
[2020-06-29] MEDS: Fluorometholone 0.1% Ophth Susp 5 ML Bottle EYEBOTH SCH (08:12)
[2020-06-29] MEDS: Timolol Maleate 0.5% Ophth Soln 5 ML Bottle EYEBOTH SCH (08:12)
[2020-06-29] MEDS: Aspirin 81 MG Tab.EC PO SCH (11:58)
[2020-06-29] MEDS: Magnesium Oxide 500 MG Tab PO SCH (11:58)
--- NOTE | 2020-06-30 14:55 | DISCH ---
This is a 75-year-old patient who was admitted to [facility] on 06/20/2020. He was transferred from [facility] for [facility] bed care and rehabilitation following a right total knee arthroplasty which was performed on 06/15/[address] Byron Lugo. The patient has a history of atrial fibrillation, status post pulmonary vein isolation ablation and is on anticoagulation with Coumadin. He also has diabetes mellitus type 2, coronary artery disease and is status post CABG. He was discharged from [facility] in [place] briefly. On his way home, he developed acute right leg pain. He presented back to the hospital and was found to have a deep vein thrombosis in the right distal femoral, popliteal, posterior tibial, and peroneal vein on ultrasound. The patient is on Coumadin for long-term anticoagulation. Apparently, he was subtherapeutic with INR of 1.9. He was discharged with Lovenox for bridging. Regulating his INR has been a challenge in the hospital too. Yesterday he was 2.1 and received 7.5 mg. Today he was 2.2 and will receive 7.5 mg. He has been on enoxaparin 100 mg subcu b.i.d. He will go home on just daily enoxaparin 100 mg. He has syringes that were provided to him by [facility] in [place] when he was initially discharged. He is taking aspirin and metoprolol. He has coronary artery disease and is status post CABG. He does have congestive heart failure with an ejection fraction of 40% to 45%. He is taking metoprolol and losartan and Lasix for the same. He has atrial fibrillation, is on long-term anticoagulation with Coumadin as well as a beta barron. He does have hyperlipidemia and is on Crestor. He has hypertension and his blood pressure is within goal. We will continue amlodipine, losartan, as well as metoprolol. Diabetes mellitus type 2. He is on Tresiba. He has BPH and will continue taking Flomax and finasteride. He has glaucoma and is using numerous eyedrops for the same. He does have anxiety and is taking Ativan at bedtime. He does have obesity with a BMI of 32.7. He does have an excoriation surrounding his incision of the right knee. He was found to be allergic to a dressing that was used. He has been having daily dressing changes with Telfa and an ABD pad and now Donnell wrap. PHYSICAL EXAMINATION: VITAL SIGNS: Stable. Temp is 97.2, pulse 73, respirations 18, blood pressure 126/48. His O2 saturation is 95% on room air. SKIN: Warm and dry to touch. CARDIAC: Reveals an irregularly irregular rhythm. No murmur, click, or gallop is auscultated. LUNGS: Clear without rales, wheezes, or rhonchi. ABDOMEN: Soft, nontender. Bowel sounds present in all four quadrants. EXTREMITIES: He does have right knee swelling. There is excoriation on either side where there was an allergic reaction to a dressing. There is normal blistering. It does not look erythematous. He has been covered empirically with Rocephin 1 g IV daily. He did have fever on 06/21/2020. Blood cultures were drawn and there has been no growth from them. He does have ecchymosis extending from the right inner thigh all the way down to his right knee. IMPRESSION AND DISCHARGE DIAGNOSES: 1. Status post right knee arthroplasty, he has fulfilled his physical therapy goals and rehabilitation in swing bed with an admission date of 06/20/2020. 2. Right lower extremity deep vein thrombosis, on anticoagulation with Coumadin. He will go home on enoxaparin 100 mg daily until we can make sure his INR remains therapeutic. 3. Atrial fibrillation, rate controlled. 4. Hyperlipidemia, on statin. 5. Hypertension, at goal. 6. Benign prostatic hypertrophy, stable. 7. Diabetes mellitus type 2, stable. 8. Coronary artery disease with status post CABG and atrial fibrillation, these are stable as well. 9. Difficulty titrating Coumadin with treatment with enoxaparin. Please see above #2. 10.The patient is complaining of constipation and did have MiraLAX as well as milk of magnesia and sennosides. He had a suppository x1 and has had a good bowel movement. He will return for physical therapy tomorrow at 2 p.m. He will have an INR at that time as well. He is also scheduled for multiple physical therapy sessions as an outpatient. We will monitor his INR. He will schedule a followup appointment on 07/03/2020. /[id number]/MODL
== END 2020-06-29 14:10 | disposition home or self-care (01) | DRG 560 ==
LOC: KA.MS 14:06
DX: Z47.1 Aftercare following joint replacement surgery (principal); I82.451 Acute embolism and thrombosis of right peroneal vein; I82.431 Acute embolism and thrombosis of right popliteal vein; I82.441 Acute embolism and thrombosis of right tibial vein; Z96.651 Presence of right artificial knee joint; I48.91 Unspecified atrial fibrillation; E78.5 Hyperlipidemia, unspecified; I11.0 Hypertensive heart disease with heart failure; I25.10 Atherosclerotic heart disease of native coronary artery without angina pectoris; K59.00 Constipation, unspecified; N40.0 Benign prostatic hyperplasia without lower urinary tract symptoms; E11.9 Type 2 diabetes mellitus without complications; M25.461 Effusion, right knee; Z20.822 Contact with and (suspected) exposure to COVID-19; Z95.0 Presence of cardiac pacemaker; Z95.1 Presence of aortocoronary bypass graft; Z79.01 Long term (current) use of anticoagulants; Z79.82 Long term (current) use of aspirin
CPT/HCPCS: 36415; 36416; 80053; 82962; 85025; 85610; 87040; 87070; 87081; 87205; 87430; 97110-GP; 97161-GP; A9270-GY; J0696; J1170; J1650; J1815-GY; U0002

== ENCOUNTER 2020-06-30 10:29 | Inpatient (IN) | payer MEDICARE, BC ==
[2020-06-30] MEDS ORDERED: Sodium Chloride 0.9% 10 ML Syringe FLUSH PRN (11:05)
[2020-06-30] MEDS ORDERED: Magnesium Hydroxide 400 MG/5 ML Susp 30 ML Cup PO PRN (11:09)
[2020-06-30] MEDS ORDERED: Calcium Carbonate 500 MG Tab.Chew PO PRN (11:09)
[2020-06-30] MEDS ORDERED: Nitroglycerin 0.4 MG Tab.SL SL PRN (11:09)
[2020-06-30] MEDS ORDERED: Phenol 1.4% Oral Spray 177 ML Bottle MUCMEM PRN (11:09)
[2020-06-30] MEDS ORDERED: Melatonin 3 MG Tab PO PRN (11:09)
[2020-06-30] MEDS ORDERED: HYDROmorphone 1 MG/ML Syringe IVPUSH PRN (11:13)
[2020-06-30] MEDS ORDERED: Polyethylene Glycol 3350 Powder 17 GM Packet PO PRN (11:36)
[2020-06-30] MEDS: Iron Polysaccharides Complex 150 MG Cap PO SCH (11:55)
[2020-06-30] MEDS: Magnesium Oxide 500 MG Tab PO SCH (11:55)
[2020-06-30] MEDS: Aspirin 81 MG Tab.EC PO SCH (11:55)
[2020-06-30] MEDS: Acetaminophen 325 MG Tab PO PRN ×2 (11:55→20:46)
[2020-06-30 12:21] LABS: ANION GAP 10.7 mmol/L (5-15); CHLORIDE,CL 102 mmol/L (98-107); SODIUM,NA 141 mmol/L (136-145)
[2020-06-30] MEDS ORDERED: Carboxymethylcellulose Sodium 0.5% Ophth Soln 15 ML Bottle EYEBOTH PRN (12:55)
[2020-06-30] MEDS: oxyCODONE 5 MG Tab PO PRN ×2 (13:19→17:38)
--- NOTE | 2020-06-30 13:56 | CR ---
[id number] RAD/RAD Knee Right 1-2V Exam: RAD Knee Right 1-2V Indication:PAIN AND SWELLING. Comparison: October 28, 2019. Discussion/Impression: Large knee joint effusion. Prepatellar soft tissue swelling. Total knee arthroplasty with patellar resurfacing. Prosthesis components are in normal alignment. No radiographic evidence of prosthesis loosening or infection. Johny Kelley MD 06/30/20 [id number] Thank you for allowing us to participate in the care of your patient.
[2020-06-30] MEDS: Cephalexin 250 MG Cap PO SCH ×3 (14:55→22:01)
[2020-06-30] MEDS: Furosemide 20 MG Tab PO SCH (15:29)
[2020-06-30] MEDS ORDERED: Warfarin 5 MG Tab PO ONE ×2 (16:00→18:00)
[2020-06-30] MEDS: traMADol 50 MG Tab PO PRN (16:01)
[2020-06-30] MEDS: metFORMIN 500 MG Tab PO SCH (17:38)
[2020-06-30] MEDS: amLODIPine 5 MG Tab PO SCH (17:38)
[2020-06-30] MEDS ORDERED: Warfarin 2.5 MG Tab PO SCH ×2 (18:00)
--- NOTE | 2020-06-30 20:01 | CONS ---
DATE OF CONSULTATION: CONSULTING PHYSICIAN: Johny Sheriff, LOCATED WITHIN [facility] REQUESTING PHYSICIAN: CHIEF COMPLAINT: Painful swollen right knee. HISTORY OF PRESENT ILLNESS: This is a 75-year-old gentleman status post right total knee arthroplasty on 06/15/[address] Lugo in [facility]. He had an uneventful one night of postoperative stay and was discharged to home the following day. The evening of his discharge, he began experiencing increasing pain and discomfort in his right calf and thigh. He was brought back up to the emergency room and had a Doppler ultrasound that revealed a DVT. He was admitted and spent three day hospital stay at the [facility]. He was subsequently discharged on Coumadin and Lovenox and was transferred to the [facility] swing bed on 06/20/2020. His swing bed stay was uneventful, and he was progressing with his physical therapy until he was discharged to home yesterday. That evening at home, he began experiencing severe increased pain and discomfort in his right knee with associated swelling and was readmitted to the hospital due to pain, discomfort, and swelling. He was seen by Dr. Zonia Arce and had his right knee aspirated under sterile technique. She was unable to aspirate any significant fluid. [place] [address]. His CRP was 5.8, and sedimentation rate was a send out. His INR was subtherapeutic at 1.9. He had blood cultures taken back on 06/21/2020, which were negative. He was placed on prophylactic Keflex after his right knee aspiration. He has been afebrile during his time here. He had an x-ray of his right knee taken today. It shows a large knee joint effusion, prepatellar soft tissue swelling. There is a total knee arthroplasty with patellar resurfacing. Prosthesis components are in normal alignment. No radiographic evidence of prosthesis loosening or infection. The patient is seen at his bedside today. His son accompanies him. PHYSICAL EXAMINATION: GENERAL: He is alert and oriented x3. Pain is well controlled currently while he rests in bed. He is in no acute distress. He is pleasant and cooperative and conversive to questions and answering. EXTREMITIES: His right lower extremity shows a large joint knee effusion with warmth to palpation. There are previously dried blisters overlying the area of this skin laterally. His incision is without any active drainage. He has a considerable amount of ecchymoses surrounding the medial aspect of his calf and inner thigh and discoloration overlying the right knee, which likely this is consisting of a bleeding into the knee joint. He has increased pain with gentle motion of the knee. He has a knee resting under two pillows. Pulses are 1+ distally. He has no pain with gentle hip range of motion. IMPRESSION: 1. Right total knee arthroplasty. Radiographically, it looks well fixed, well- aligned. 2. Large right knee effusion consistent with hemarthrosis. PLAN: 1. A compressive wrap and SUZIE hose and elevation. 2. I would recommend followup and consultation with Dr. Lugo, the patient's orthopedic surgeon regarding his large knee hemarthrosis and pain and discomfort. He likely sustained a bleed in his knee following his discharge as his history and report shows that he was doing quite well prior to his discharge from swing bed. Dr. Zonia Arce covered him prophylactically with Keflex as she attempted aspiration of his right knee. I would follow his lab works along closely and with close observation of his right knee. I have discussed this with the patient and his son today as well as Dr. Zonia Arce. He will continue with his anticoagulation, Coumadin, and is currently on the Lovenox 100 mg subcu daily. /[id number]/MODL MTDD
[2020-06-30] MEDS ORDERED: Brimonidine 0.2% Ophth Soln 15 ML Bottle EYEBOTH SCH (21:00)
[2020-06-30] MEDS ORDERED: Timolol Maleate 0.5% Ophth Soln 5 ML Bottle EYEBOTH SCH (21:00)
[2020-06-30] MEDS: Latanoprost 0.005% Ophth Soln 2.5 ML Bottle EYEBOTH SCH (21:08)
[2020-06-30] MEDS: [UNRECOGNIZED DRUG - OTHER] TOP SCH (21:08)
[2020-06-30] MEDS: TRESIBA 100 UNIT/ML SQ SCH (21:08)
[2020-06-30] MEDS: Gabapentin 300 MG Cap PO SCH (21:12)
[2020-06-30] MEDS: Metoprolol Succinate 25 MG Tab.ER PO SCH (21:12)
[2020-06-30] MEDS: LORazepam 0.5 MG Tab PO SCH (21:12)
[2020-06-30] MEDS: Tamsulosin 0.4 MG Cap.ER PO SCH (21:12)
[2020-06-30] MEDS: Rosuvastatin 10 MG Tab PO SCH (21:12)
[2020-06-30] MEDS: COMBIGAN EYEBOTH SCH (22:01)
[2020-07-01] MEDS: Cephalexin 250 MG Cap PO SCH ×4 (05:19→22:09)
[2020-07-01] MEDS: Acetaminophen 325 MG Tab PO PRN ×2 (05:19→13:16)
[2020-07-01 07:49] LABS: ANION GAP 10.2 mmol/L (5-15); CHLORIDE,CL 105 mmol/L (98-107); SODIUM,NA 142 mmol/L (136-145)
[2020-07-01] MEDS: metFORMIN 500 MG Tab PO SCH ×2 (08:05→17:56)
[2020-07-01] MEDS: Finasteride 5 MG Tab PO SCH (08:05)
[2020-07-01] MEDS: Omeprazole 20 MG Cap.CR PO SCH (08:05)
[2020-07-01] MEDS: Furosemide 20 MG Tab PO SCH ×2 (08:05→15:43)
[2020-07-01] MEDS: Iron Polysaccharides Complex 150 MG Cap PO SCH ×2 (08:05→12:01)
[2020-07-01] MEDS: Enoxaparin 100 MG/1 ML Syringe SUBCUT SCH (08:08)
[2020-07-01] MEDS: COMBIGAN EYEBOTH SCH ×2 (08:08→20:43)
[2020-07-01] MEDS: Fluorometholone 0.1% Ophth Susp 5 ML Bottle EYEBOTH SCH (08:08)
[2020-07-01] MEDS: oxyCODONE 5 MG Tab PO PRN ×3 (08:57→17:06)
[2020-07-01] MEDS: Metoprolol Succinate 25 MG Tab.ER PO SCH ×2 (08:58→20:39)
[2020-07-01] MEDS: Losartan 25 MG Tab PO SCH (09:00)
[2020-07-01] MEDS: Aspirin 81 MG Tab.EC PO SCH (12:01)
[2020-07-01] MEDS: Magnesium Oxide 500 MG Tab PO SCH (12:01)
--- NOTE | 2020-07-01 12:59 | HP ---
HISTORY OF PRESENT ILLNESS: This is a 75-year-old patient who was just discharged from swing bed yesterday. He is status post right total knee arthroplasty which was performed on 06/15/[address] Byron Luog. The patient has a history of atrial fibrillation and is status post pulmonary vein isolation ablation and is on anticoagulation with Coumadin. He also has diabetes mellitus type 2, coronary artery disease, and is status post CABG. He was discharged from [facility] briefly, on his way home he developed acute right leg pain. He presented back to the hospital and was found to have a deep vein thrombosis in the right distal femoral, popliteal, posterior tibial, and peroneal vein on ultrasound. The patient was discharged on Lovenox as well as Coumadin. Regulating his Coumadin has been challenging since he has been here in swing bed. The patient developed severe pain and swelling in his right leg and knee and was brought back to the hospital for swing bed readmission. Physical Therapy will continue to work with him with endurance and strengthening. The patient has CAD and is status post CABG. He is taking aspirin as well as metoprolol. He does have chronic congestive heart failure with an ejection fraction of 40% to 45%. He is taking metoprolol, losartan, and Lasix for the same. He does have atrial fibrillation and is on long-term anticoagulation with Coumadin as well as a beta-barron. He has hyperlipidemia and is taking Crestor. He has hypertension and his blood pressure is within goal. He will continue amlodipine, losartan, and metoprolol. He has diabetes mellitus type 2. This is well controlled. He does have BPH and will continue taking Flomax as well as finasteride. He has a history of glaucoma and is using eyedrops for the same. He does have anxiety and is taking Ativan at bedtime. He has obesity and has a BMI of 32.7. The patient did experience an allergic reaction to one of the dressings prior to discharge from [place]. He does have some excoriation surrounding the right knee incision. PHYSICAL EXAMINATION: VITAL SIGNS: Temp was 98.1, pulse is 75, respirations 18, blood pressure 133/62, his oxygen saturation is 100% on room air. SKIN: Warm and dry to touch. CARDIAC: Reveals an irregularly irregular cardiac rhythm with no murmur, click, or gallop auscultated. LUNGS: Clear without rales, wheezes, or rhonchi. ABDOMEN: Soft, obese, nontender with positive bowel sounds. EXTREMITIES: His right knee is profoundly edematous. The incision does not look infected. There is question of a hemarthrosis. Posterior tibial pulses are palpable. Dorsalis pedis pulses are very faint. He actually had to have these Doppler'd when he was in [place]. LABORATORY DATA: Lab work from today includes a CBC, INR, and chemistry panel. His white count was slightly elevated at 11.95. His INR is 1.9 today. CMP shows an elevated BUN of 20 with a normal creatinine of 1.10. His C- reactive protein was 5.8 and albumin 3.25. IMPRESSION/PLAN: 1. Status post right knee arthroplasty. He was readmitted today to swing bed due to increased pain, questionable hemarthrosis as well as continued physical therapy for strength and endurance. 2. Right lower extremity deep vein thrombosis, he is on Lovenox as well as Coumadin. 3. Atrial fibrillation, rate controlled. 4. Hyperlipidemia, on statin. 5. Hypertension, at goal. 6. Benign prostatic hypertrophy which is stable. 7. Diabetes mellitus, stable. 8. Coronary artery disease status post coronary artery bypass grafting and atrial fibrillation. These are stable as well. 9. Difficulty titrating Coumadin with subtherapeutic INR. He had an INR today of 1.9. He will continue on enoxaparin, also known as Lovenox. I did give him 10 mg of Coumadin today and going forward he will receive 7.5 on a daily basis. We will continue to monitor daily INRs. 10.The patient did have constipation and does have laxatives ordered. Johny Sheriff PA-C with [facility] is covering our emergency room today and over the weekend. Dr. Arce requested he consult on the patient. Dr. Arce also consulted on the patient and did attempt knee aspiration, apparently this is not recommended status post right knee arthroplasty. Johny also felt that there was most likely a hemarthrosis. She recommended that we let the surgeon, Byron Lugo know about the changes in the patient's condition. I did call Dr. Lugo, however, he was out for the day. I spoke with his nurse who recommended elevation of the knee above the heart for 30 minutes several times a day and ice as well as compression. She also recommended that the patient followup with Dr. Lugo next week. I went 1 step further and called the on-call orthopedic surgeon at [place], who was Dr. Boogie. He recommended ice and elevation and compression as well. He also recommended that the patient followup with Dr. Lugo next week. He did not feel that any further intervention would be necessary at this time. We will continue to monitor this patient in swing bed. /[id number]/MODL MTDD
[2020-07-01] MEDS: traMADol 50 MG Tab PO PRN (13:15)
[2020-07-01] MEDS: Warfarin 2.5 MG Tab PO SCH (17:56)
[2020-07-01] MEDS: amLODIPine 5 MG Tab PO SCH (17:56)
[2020-07-01] MEDS: Gabapentin 300 MG Cap PO SCH (20:38)
[2020-07-01] MEDS: Rosuvastatin 10 MG Tab PO SCH (20:39)
[2020-07-01] MEDS: LORazepam 0.5 MG Tab PO SCH (20:39)
[2020-07-01] MEDS: Tamsulosin 0.4 MG Cap.ER PO SCH (20:39)
[2020-07-01] MEDS: TRESIBA 100 UNIT/ML SQ SCH (20:48)
[2020-07-01] MEDS: Latanoprost 0.005% Ophth Soln 2.5 ML Bottle EYEBOTH SCH (20:50)
[2020-07-01] MEDS: [UNRECOGNIZED DRUG - OTHER] TOP SCH (20:50)
[2020-07-02] MEDS: traMADol 50 MG Tab PO PRN ×2 (03:39→12:48)
[2020-07-02] MEDS: Cephalexin 250 MG Cap PO SCH ×4 (04:59→22:35)
[2020-07-02] MEDS: Iron Polysaccharides Complex 150 MG Cap PO SCH ×2 (08:44→11:59)
[2020-07-02] MEDS: metFORMIN 500 MG Tab PO SCH ×2 (08:45→17:28)
[2020-07-02] MEDS: Furosemide 20 MG Tab PO SCH ×2 (08:45→16:42)
[2020-07-02] MEDS: Losartan 25 MG Tab PO SCH (08:45)
[2020-07-02] MEDS: Enoxaparin 100 MG/1 ML Syringe SUBCUT SCH (08:46)
[2020-07-02] MEDS: Fluorometholone 0.1% Ophth Susp 5 ML Bottle EYEBOTH SCH (08:46)
[2020-07-02] MEDS: Omeprazole 20 MG Cap.CR PO SCH (08:47)
[2020-07-02] MEDS: COMBIGAN EYEBOTH SCH ×2 (08:48→21:25)
[2020-07-02] MEDS: Finasteride 5 MG Tab PO SCH (08:48)
[2020-07-02] MEDS: Metoprolol Succinate 25 MG Tab.ER PO SCH ×2 (08:49→21:35)
[2020-07-02] MEDS: oxyCODONE 5 MG Tab PO PRN ×3 (08:50→22:35)
[2020-07-02] MEDS: Aspirin 81 MG Tab.EC PO SCH (11:59)
[2020-07-02] MEDS: Magnesium Oxide 500 MG Tab PO SCH (12:00)
[2020-07-02] MEDS: amLODIPine 5 MG Tab PO SCH (17:31)
[2020-07-02] MEDS: Warfarin 2.5 MG Tab PO SCH (17:31)
[2020-07-02] MEDS: Gabapentin 300 MG Cap PO SCH (21:26)
[2020-07-02] MEDS: Rosuvastatin 10 MG Tab PO SCH (21:26)
[2020-07-02] MEDS: LORazepam 0.5 MG Tab PO SCH (21:27)
[2020-07-02] MEDS: Tamsulosin 0.4 MG Cap.ER PO SCH (21:27)
[2020-07-02] MEDS: [UNRECOGNIZED DRUG - OTHER] TOP SCH (21:28)
[2020-07-02] MEDS: Latanoprost 0.005% Ophth Soln 2.5 ML Bottle EYEBOTH SCH (21:32)
[2020-07-02] MEDS: TRESIBA 100 UNIT/ML SQ SCH (21:32)
[2020-07-03] MEDS: Cephalexin 250 MG Cap PO SCH ×4 (05:36→22:06)
[2020-07-03] MEDS: Fluorometholone 0.1% Ophth Susp 5 ML Bottle EYEBOTH SCH (08:23)
[2020-07-03] MEDS: Losartan 25 MG Tab PO SCH (08:24)
[2020-07-03] MEDS: Omeprazole 20 MG Cap.CR PO SCH (08:24)
[2020-07-03] MEDS: Metoprolol Succinate 25 MG Tab.ER PO SCH ×2 (08:25→21:32)
[2020-07-03] MEDS: COMBIGAN EYEBOTH SCH ×2 (08:25→21:30)
[2020-07-03] MEDS: metFORMIN 500 MG Tab PO SCH ×2 (08:26→18:07)
[2020-07-03] MEDS: Furosemide 20 MG Tab PO SCH ×2 (08:26→17:00)
[2020-07-03] MEDS: Iron Polysaccharides Complex 150 MG Cap PO SCH ×2 (08:26→11:58)
[2020-07-03] MEDS: Finasteride 5 MG Tab PO SCH (08:27)
[2020-07-03] MEDS: Enoxaparin 100 MG/1 ML Syringe SUBCUT SCH (08:27)
[2020-07-03] MEDS: oxyCODONE 5 MG Tab PO PRN ×2 (08:51→18:08)
--- NOTE | 2020-07-03 10:15 | PCM.PRNOTE ---
- Free Text/Narrative Note: On 06/30 attempted to drain presumed hemarthrosis of RIGHT knee. The knee was cleansed with chlorhexadine and ethyl chloride was used for anesthesia. An 18 gauge needle was used for aspiration, no fluid was able to be drained. A bandaid was placed. No complications. The patient was started on Keflex 500 mg PO qid for prophylaxis.
[2020-07-03] MEDS: Aspirin 81 MG Tab.EC PO SCH (11:57)
[2020-07-03] MEDS ORDERED: Magnesium Oxide 500 MG Tab PO SCH (12:00)
--- NOTE | 2020-07-03 13:25 | PN ---
PATIENT NAME: AMBER QUINTANILLA He was readmitted to the hospital on 06/30/2020 after being discharged from swing bed on 06/29/2020. He had developed hemarthrosis and severe pain and swelling in his right leg. He has continued with physical therapy here and is ambulating on his own. He is just not quite ready to go home with home health. Ponce Goncalves has made a referral to [facility] and they will accept him tomorrow. The patient is agreeable with this. He does need to elevate his legs several times per day and apply ice. Please refer to my history and physical examination from June 30, 2020 for the patient's medical history as it is outlined in great detail. The patient is now therapeutic with his INR of 2.7. He is receiving 7.5 mg of Coumadin on a daily basis. We have stopped his enoxaparin today. Plan is to discharge to [facility] tomorrow. He will continue physical and occupational therapy there. /[id number]/MODL
[2020-07-03] MEDS: traMADol 50 MG Tab PO PRN (14:11)
[2020-07-03] MEDS: Warfarin 2.5 MG Tab PO SCH (18:07)
[2020-07-03] MEDS: amLODIPine 5 MG Tab PO SCH (18:09)
[2020-07-03] MEDS: Rosuvastatin 10 MG Tab PO SCH (21:30)
[2020-07-03] MEDS: LORazepam 0.5 MG Tab PO SCH (21:30)
[2020-07-03] MEDS: Tamsulosin 0.4 MG Cap.ER PO SCH (21:31)
[2020-07-03] MEDS: Gabapentin 300 MG Cap PO SCH (21:31)
[2020-07-03] MEDS: TRESIBA 100 UNIT/ML SQ SCH (21:33)
[2020-07-03] MEDS: Latanoprost 0.005% Ophth Soln 2.5 ML Bottle EYEBOTH SCH (21:34)
[2020-07-03] MEDS: [UNRECOGNIZED DRUG - OTHER] TOP SCH (21:35)
[2020-07-04] MEDS: oxyCODONE 5 MG Tab PO PRN ×2 (05:32→09:59)
[2020-07-04] MEDS: Cephalexin 250 MG Cap PO SCH (05:32)
[2020-07-04] MEDS: COMBIGAN EYEBOTH SCH (08:13)
[2020-07-04] MEDS: Finasteride 5 MG Tab PO SCH (08:13)
[2020-07-04] MEDS: Fluorometholone 0.1% Ophth Susp 5 ML Bottle EYEBOTH SCH (08:13)
[2020-07-04] MEDS: Omeprazole 20 MG Cap.CR PO SCH (08:13)
[2020-07-04] MEDS: Furosemide 20 MG Tab PO SCH (08:13)
[2020-07-04] MEDS: Iron Polysaccharides Complex 150 MG Cap PO SCH (08:14)
[2020-07-04] MEDS: metFORMIN 500 MG Tab PO SCH (08:14)
[2020-07-04] MEDS: Losartan 25 MG Tab PO SCH (08:14)
[2020-07-04] MEDS: Metoprolol Succinate 25 MG Tab.ER PO SCH (08:14)
[2020-07-04 08:15] VITALS: BP 129/61; PULSE 87
--- NOTE | 2020-07-04 10:42 | DISCH ---
ADMITTING DIAGNOSIS: 1. Acute right knee pain. Status post right knee arthroplasty on 06/15/[address] Byron Lugo at [facility] in [place]. 2. Right lower extremity deep venous thrombosis. SECONDARY PROBLEMS: 1. Atrial fibrillation, rate controlled. 2. Hypertension. 3. BPH. 4. Diabetes mellitus. 5. Coronary artery disease with history of coronary artery bypass grafting. 6. Constipation. HOSPITAL COURSE: Fernando is a very pleasant 75-year-old gentleman who was initially admitted to swing bed on 06/20/2020 and had a stay through 06/29/2020 for rehabilitation after a right total knee arthroplasty that was complicated by a right lower extremity DVT that involved the femoral, popliteal, posterior tibial, and peroneal vein. He was discharged from [facility] on Lovenox as well as Coumadin. He does take Coumadin for atrial fibrillation and had been slightly subtherapeutic at 1.9 at the time that the DVT occurred. He was discharged to home on 06/29, however, he developed very significant pain in that right knee with development of probable hemarthrosis. This was attempted to be aspirated on 06/30/2020, which is when he had presented for readmission to swing bed. He is on his warfarin, is now therapeutic. He is receiving 7.5 mg of Coumadin a day. Of note, at the time of the attempted aspiration there was no blood that was able to be withdrawn. The patient did have significant swelling of his knee, but it was not felt to be related to infection. The patient was placed on Keflex 500 mg by mouth q.i.d. for prophylaxis to prevent infection into the newly replaced knee. He did spike a fever, but blood cultures have been negative to date and that was only on 1 day. He did require antipyretic medication at that time. Fernando has progressed nicely while he has been in swing bed. His pain is tolerable with oxycodone. He is really able to avoid using the oxycodone overnight as he is not really having any pain without activity; however, when he has pain it is with activity. Blood pressure has been well controlled. Heart rate has been well controlled. He is has been following a diabetic diet. Fernando is going to be discharged to [facility] in [place] for ongoing rehabilitation and care until he is able to return to independent living. MEDICATION CHANGES: He will be discharged on Keflex 500 mg by mouth q.i.d. for a total of 10 days. This will be completed on 07/10. There will be no other changes to his medications. He will remain on warfarin at 7.5 mg daily with an INR to be completed on 07/07. This can be done at the [facility] in [place] with results being faxed to the clinic. I should add that Fernando will be discharged on oxycodone which he was not on prior to his knee replacement surgery. He has been getting anywhere from 5 to 10 mg by mouth every 4 hours as needed for pain. Typically, he receives 5 mg and so we will discharge him on the 5 mg dose. DISCHARGE MEDICATIONS: 1. Acetaminophen 650 mg p.o. q.6 hours p.r.n. pain. 2. Amlodipine 5 mg p.o. daily. 3. Artificial Tears q.4 hours p.r.n. for dry eyes. 4. Aspirin 81 mg p.o. daily. 5. Tums 1000 mg p.o. q.4 hours p.r.n. acid reflux. 6. Keflex 500 mg p.o. q.6 hours to complete a 10-day course, that course will be completed on 07/10. 7. Finasteride 5 mg p.o. daily. 8. Fluorometholone q.a.m. as scheduled for glaucoma. 9. Furosemide 20 mg p.o. b.i.d. 10.Gabapentin 600 mg p.o. daily at 9 p.m. 11.Latanoprost at bedtime in both eyes. 12.Lorazepam 1 mg p.o. at bedtime for anxiety. 13.Losartan 25 mg p.o. daily. 14.Magnesium hydroxide 30 mL p.o. daily p.r.n. constipation. 15.Magnesium oxide 500 mg p.o. daily at noon. 16.Melatonin 3 mg p.o. at bedtime p.r.n. insomnia. 17.Metformin 500 mg p.o. b.i.d. 18.Metoprolol XL 12.5 mg p.o. b.i.d. 19.Nitroglycerin 0.4 mg sublingually as directed as needed for chest pain. 20.Tresiba 42 units subcutaneously at bedtime. 21.Omeprazole 40 mg p.o. daily. 22.Oxycodone 5 mg p.o. q.4 hours p.r.n. pain. 23.MiraLAX 17 g p.o. daily p.r.n. constipation. 24.Ferrex 150, 150 mg p.o. b.i.d. 25.Rosuvastatin 20 mg p.o. at bedtime. 26.Senna/docusate 2 tabs p.o. b.i.d. scheduled. 27.Tamsulosin 0.4 mg p.o. at bedtime p.r.n. 28.Tramadol 50 mg q.6 hours p.r.n. pain. 29.Warfarin 7.5 mg p.o. daily at 6 p.m. CODE STATUS: Full code. DISCHARGE DIET: Diabetic. ACTIVITY: As tolerated and per Physical Therapy. Fernando will not require speech therapy while at the [facility]. If occasional therapy is required we can certainly request that. He will be followed up with on the next [facility] rounds. He should follow up with Dr. Lugo the next time that he is in [facility]. He will continue to have an Donnell wrap to his knee on the right. This is to help reduce the swelling of the knee. When the swelling has gone down, which it already has, he will be able to discontinue the Donnell wrap to the leg. PHYSICAL EXAMINATION: VITAL SIGNS: Blood pressure is 129/61, pulse is 87, respirations 18, O2 saturation is 97% on room air, temperature is 96.5 degrees Fahrenheit. GENERAL: He is alert and oriented and is in no acute distress. CARDIOVASCULAR: Irregularly irregular, there is a 2/6 systolic murmur. RESPIRATORY: Lungs are clear to auscultation bilaterally. ABDOMEN: Soft, nontender, bowel sounds are positive in all 4 quadrants. EXTREMITIES: He does have extensive bruising to his right lower extremity with dependent ecchymosis. His knee is draining slightly a bloody drainage in an area that is slightly but there is scab over this area. There is no evidence of infection. There is swelling of the knee. Incision is healing. /[id number]/[facility] [place]
== END 2020-07-04 10:35 | DRG 554 ==
LOC: UNDOADMIN 10:29 → KA.MS 10:29
PROC: 0SJC3ZZ Inspection of Right Knee Joint, Percutaneous Approach (ICD-10-PCS; principal; 2020-06-30)
DX: M25.061 Hemarthrosis, right knee (principal); I82.411 Acute embolism and thrombosis of right femoral vein; I82.431 Acute embolism and thrombosis of right popliteal vein; I82.451 Acute embolism and thrombosis of right peroneal vein; I82.441 Acute embolism and thrombosis of right tibial vein; Z20.822 Contact with and (suspected) exposure to COVID-19; I48.91 Unspecified atrial fibrillation; N40.0 Benign prostatic hyperplasia without lower urinary tract symptoms; I25.10 Atherosclerotic heart disease of native coronary artery without angina pectoris; K59.00 Constipation, unspecified; Z96.651 Presence of right artificial knee joint; E11.9 Type 2 diabetes mellitus without complications; I11.0 Hypertensive heart disease with heart failure; I50.9 Heart failure, unspecified; E78.5 Hyperlipidemia, unspecified; H40.9 Unspecified glaucoma; F41.9 Anxiety disorder, unspecified; E66.9 Obesity, unspecified; Z68.32 Body mass index [BMI] 32.0-32.9, adult; Z95.1 Presence of aortocoronary bypass graft; Z79.01 Long term (current) use of anticoagulants
CPT/HCPCS: 36415; 36416; 73560-RT; 80048; 80053; 81001; 82962; 85025; 85610; 85652; 86140; 87040; 97110-GP; 97161-GP; A9270-GY; J1170; J1650; U0002

== ENCOUNTER 2020-09-12 08:57 | Day surgery (SDC) | payer MEDICARE, BC ==
[2020-09-12] MEDS ORDERED: Sodium Chloride 0.9% 1,000 ML IV SCH (09:00)
[2020-09-12] MEDS ORDERED: Sodium Chloride 0.9% 10 ML Syringe FLUSH PRN (09:00)
[2020-09-12] MEDS ORDERED: Propofol 200 MG/20 ML SDV ONE (09:38)
[2020-09-12] MEDS ORDERED: Midazolam 1 MG/ML 2 ML SDV ONE (09:38)
--- NOTE | 2020-09-12 10:34 | PCM.PN ---
- General Info Date of Service: 09/12/20 - Review of Systems Systems Review Comment:: 75-year-old male referred for colonoscopy. He has a recent history of rectal bleeding. The patient is medically stable to proceed today. His recent history and physical is reviewed and no significant changes are noted. I have discussed the proposed colonoscopy with the patient. He agrees to proceed accepting risks. - Patient Data Vitals - Most Recent: Last Vital Signs Temp 97.4 F 09/12/20 09:09 Pulse 63 09/12/20 09:09 Resp 16 09/12/20 09:09 BP 120/61 09/12/20 09:09 Pulse Ox 97 09/12/20 09:09 Weight - Most Recent: 96.162 kg Lab Results Last 24 Hours: Laboratory Results - last 24 hr 09/12/20 09/12/20 Range/Units 09:15 09:16 INR 1.1 (0.9-1.1) POC Glucose 87 (70-140) mg/dL Med Orders - Current: Current Medications Sodium Chloride (Normal Saline) 1,000 mls @ 50 mls/hr IV ASDIRECTED KLARISSA Last Admin: 09/12/20 09:28 Dose: 50 mls/hr Documented by: Sodium Chloride (Sodium Chloride 0.9% 10 Ml Syringe) 10 ml FLUSH Q8HR PRN PRN Reason: keep vein open Discontinued Medications Midazolam HCl (Midazolam 1 Mg/Ml 2 Ml Sdv) Confirm Administered Dose 2 mg .ROUTE .STK-MED ONE Stop: 09/12/20 09:39 Propofol (Propofol 200 Mg/20 Ml Sdv) Confirm Administered Dose 400 mg .ROUTE .STK-MED ONE Stop: 09/12/20 09:39 - Patient Data Lab Results Last 24 hrs: Laboratory Results - last 24 hr 09/12/20 09/12/20 Range/Units 09:15 09:16 INR 1.1 (0.9-1.1) POC Glucose 87 (70-140) mg/dL Sepsis Event Note - Focused Exam Vital Signs: Vital Signs Temp Pulse Resp BP Pulse Ox 09/12/20 09:09 97.4 F 63 16 120/61 97 - Problem List Review Problem List Initiated/Reviewed/Updated: Yes - My Orders Last 24 Hours: My Active Orders 09/11/20 12:32 Resuscitation Status Routine 09/12/20 Breakfast Nothing Per Oral Diet [DIET] 09/12/20 09:00 Blood Glucose Check, Bedside [RC] UPON Patient to Empty Bladder [RC] ASDIRECTED Peripheral IV Care [RC] . DIRECTED Sodium Chloride 0.9% [Normal Saline] 1,000 ml IV ASDIRECTED Sodium Chloride 0.9% [Saline Flush] 10 ml FLUSH Q8HR PRN Peripheral IV Insertion Adult [OM.PC] Routine 09/12/20 10:30 Verify Patient Consent Obtain [RC] ASDIRECTED - Assessment Assessment:: Rectal bleeding - Plan Plan:: Colonoscopy
--- NOTE | 2020-09-12 11:26 | PCM.OPNOTE ---
- General Post-Op/Procedure Note Date of Surgery/Procedure: 09/12/20 Operative Procedure(s): Colonoscopy with Polypectomy Findings: Multiple colon polyps Small internal hemorrhoids Pre Op Diagnosis: Rectal Bleeding Post-Op Diagnosis: Colon Polyps. Hemorrhoids Anesthesia Technique: MAC Primary Surgeon: Ralph Cid Pathology: Colon Polyps EBL in mLs: 0 Complications: None Condition: Good
--- NOTE | 2020-09-12 13:08 | OR ---
DATE OF SURGERY: 09/12/2020 SURGEON: Ralph Cid MD PREOPERATIVE DIAGNOSIS: Rectal bleeding. POSTOPERATIVE DIAGNOSIS: Colon polyps and hemorrhoids. OPERATION PERFORMED: Colonoscopy with polypectomy. INDICATIONS FOR SURGERY: This 75-year-old male has noticed some recent rectal bleeding. He comes for diagnostic colonoscopy. FINDINGS: Three polyps are noted on today's exam. These range in size from 5 to 7 mm. They are located at the proximal transverse colon, the mid transverse colon, and the splenic flexure. The remainder of the colon appears normal. There is some small internal hemorrhoids, which do not show any active bleeding at this time. DESCRIPTION OF PROCEDURE: The patient was taken to the operating room. He was given intravenous sedation and with him in the left lateral decubitus position, digital rectal exam was performed showing no rectal masses. The Olympus colonoscope was inserted into the rectum. Retroflexed examination of the rectal canal is performed. The scope was then carefully advanced through the colon until the cecum is reached. Cecal acquisition is confirmed by noting a normal internal cecal anatomy including the appendiceal orifice and the ileocecal valve. The scope was then slowly withdrawn sequentially re-examining the colonic segments. During insertion and withdrawal of the scope, 3 above- described polyps were identified. These were each removed with cautery snare and retrieved. There was no sign of any complication during the procedure and after the entire colon and rectum had been fully examined, the scope was removed and the patient was taken from the operating room in satisfactory condition. ESTIMATED BLOOD LOSS: Zero. COMPLICATIONS: None. PROGNOSIS: Good. /[id number]/MODL
[2020-09-12 18:33] VITALS: BP 127/59; PULSE 48
== END 2020-09-12 13:10 | disposition home or self-care (01) ==
LOC: KA.SDS 08:57
PROVIDERS: ATTEND Surgery
DX: D12.3 Benign neoplasm of transverse colon (principal); K64.8 Other hemorrhoids; E11.40 Type 2 diabetes mellitus with diabetic neuropathy, unspecified; G47.00 Insomnia, unspecified; I25.10 Atherosclerotic heart disease of native coronary artery without angina pectoris; E78.00 Pure hypercholesterolemia, unspecified; D50.9 Iron deficiency anemia, unspecified; I48.91 Unspecified atrial fibrillation; I10 Essential (primary) hypertension; Z79.899 Other long term (current) drug therapy; Z79.82 Long term (current) use of aspirin; Z98.890 Other specified postprocedural states; Z88.8 Allergy status to other drugs, medicaments and biological substances; Z88.5 Allergy status to narcotic agent; Z79.84 Long term (current) use of oral hypoglycemic drugs; Z87.891 Personal history of nicotine dependence
CPT/HCPCS: 00811; 36416; 82947; 85610; 88305; J2250; J2704; J7030

== ENCOUNTER 2021-02-12 22:04 | Emergency (ER) | payer MEDICARE, BC ==
[2021-02-12 22:58] VITALS: PULSE 65
[2021-02-12] MEDS: Metoprolol Tartrate 25 MG Tab PO ONE (22:58)
--- NOTE | 2021-02-12 23:25 | EDM.PDOC ---
ED HPI GENERAL MEDICAL PROBLEM - General Chief Complaint: General Time Seen by Provider: 02/12/21 22:59 Source of Information: Reports: Patient History Limitations: Reports: No Limitations - History of Present Illness INITIAL COMMENTS - FREE TEXT/NARRATIVE: Patient presents with concern of his high blood pressure. He checked at home and systolic is 170's; he normally runs 120's. He takes amlodipine and losartan qd, and metoprolol 12.5 bid. He just realized he didn't take the evening dose of metoprolol tonight though. He denies dyspnea, chest pain or tightness, weakness. He did feel flushed tonight and says today was a stressful day. He took a dose of Ativan 0.5 mg which he uses regularly. He previously had A Fib; but not at all since a cardiac ablation in May. - Related Data Allergies Allergy/AdvReac Type Severity Reaction Status Date / Time propoxyphene napsylate Allergy Unknown Headache Verified 02/12/21 22:14 [From Darsaadcet-N 100] alprazolam Allergy Hallucinati Verified 02/12/21 22:14 ons hydrocodone Allergy palpitation Verified 02/12/21 22:14 s pseudoephedrine Allergy palpatation Verified 02/12/21 22:14 [From Reynaldo] s xeroform wound dressing Allergy Blisters Uncoded 06/30/20 10:38 Home Meds: Home Meds Bimatoprost [LUMIGAN 0.01% Ophth Soln] 1 drop EYEBOTH BEDTIME 04/15/13 [History] Rosuvastatin [Crestor] 20 mg PO BEDTIME 08/07/16 [History] Brimonidine Tartrate/Timolol [Combigan 0.2%-0.5% Eye Drops] 1 drop EYEBOTH BID 09/21/16 [History] Finasteride [Proscar] 5 mg PO DAILY 09/21/16 [History] Fluorometholone [Flarex 0.1% Ophth Susp] 1 drop EYEBOTH QAM 09/21/16 [History] Nitroglycerin 0.4 mg SL ASDIRECTED PRN 09/21/16 [History] Empagliflozin [Jardiance] 25 mg PO DAILY 04/23/18 [History] Iron Polysaccharide Complex [Iferex 150] 150 mg PO BID@08,12 04/23/18 [History] Losartan Potassium [Cozaar] 25 mg PO DAILY 04/23/18 [History] Tresiba 42 units SQ BEDTIME 04/23/18 [History] Furosemide [Lasix] 20 mg PO 0800,1600 04/24/18 [History] Gabapentin [Neurontin] 600 mg PO 2100 04/24/18 [History] Magnesium Oxide 400 mg PO DAILY@1200 04/24/18 [History] Omeprazole 40 mg PO DAILY 04/24/18 [History] metFORMIN HCl [Metformin HCl] 500 mg PO BIDMEALS 04/24/18 [History] Metoprolol Succinate [Toprol XL] 12.5 mg PO BID 06/03/19 [History] amLODIPine [Norvasc] 5 mg PO 1800 06/03/19 [History] Acetaminophen 650 mg PO Q6H PRN 06/19/20 [History] Aspirin [Aspirin EC] 81 mg PO DAILY@1200 06/19/20 [History] Carboxymethylcellulose Sodium [Artificial Tears] 1 drop EYEBOTH Q4H PRN 06/19/20 [History] LORazepam [Ativan] 0.5 mg PO BEDTIME 06/19/20 [History] Tamsulosin [Flomax] 0.4 mg PO BEDTIME 06/19/20 [History] polyethylene glycoL 3350 [MiraLAX] 17 gm PO DAILY PRN #30 06/29/20 [Rx] traMADol [Ultram] 50 mg PO Q6H PRN 06/30/20 [History] Apixaban [Eliquis] 5 mg PO BID 02/12/21 [History] Past Medical History HEENT History: Reports: Allergic Rhinitis, Cataract, Glaucoma, Hard of Hearing, Impaired Vision Cardiovascular History: Reports: Afib, Aneurysm, Angina, Blood Clots/VTE/DVT, Heart Failure, Heart Murmur, High Cholesterol, Hypertension, [place], Prior Cardiac Arrest, Stents Respiratory History: Reports: Intubation, Previous Gastrointestinal History: Reports: GERD, Hemorrhoids Genitourinary History: Reports: Renal Calculus Musculoskeletal History: Reports: Arthritis Neurological History: Reports: None Psychiatric History: Reports: Anxiety Endocrine/Metabolic History: Reports: Diabetes, Type II Hematologic History: Reports: Anticoagulation Therapy, Iron Deficiency Immunologic History: Reports: None Oncologic (Cancer) History: Reports: Basal Cell Carcinoma Other Oncologic History: skin Dermatologic History: Reports: Benign Melanoma, Cellulitis Other Dermatologic History: skin cancer face head and ears - Infectious Disease History Infectious Disease History: Reports: Chicken Pox, Influenza, Measles, Mumps - Past Surgical History HEENT Surgical History: Reports: Cataract Surgery, Eye Surgery Other HEENT Surgeries/Procedures: cornea transplant Cardiovascular Surgical History: Reports: Cardiac Ablation, Carotid Stents, Coronary Artery Bypass, Coronary Artery Stent Other Cardiovascular Surgeries/Procedures: s/p resection of LV aneurysm Respiratory Surgical History: Reports: None GI Surgical History: Reports: Appendectomy, Colonoscopy Male Surgical History: Reports: Lithotripsy (ESWL) Endocrine Surgical History: Reports: None Neurological Surgical History: Reports: Lumbar Spine, Other (See Below) Other Neurological Surgeries/Procedures: nerve relocation Musculoskeletal Surgical History: Reports: Knee Replacement, Nerve Relocation Other Musculoskeletal Surgeries/Procedures:: back surgery Dermatological Surgical History: Reports: Skin Biopsy, Other (See Below) Social & Family History - Family History Family Medical History: No Pertinent Family History Cardiac: Reports: Bypass, [place] Endocrine/Metabolic: Reports: Diabetes, type II Oncologic: Reports: Ovarian - Tobacco Use Tobacco Use Status *Q: Never Tobacco User - Caffeine Use Caffeine Use: Reports: None Other Caffeine Use: decaf coffee - Recreational Drug Use Recreational Drug Use: No - Living Situation & Occupation Living situation: Reports: Occupation: Retired ED ROS GENERAL - Review of Systems Review Of Systems: Comprehensive ROS is negative, except as noted in HPI. ED EXAM, GENERAL - Physical Exam Exam: See Below Exam Limited By: No Limitations General Appearance: Alert, WD/WN, No Apparent Distress Eye Exam: Bilateral Eye: EOMI, Normal Inspection, PERRL Ears: Normal External Exam, Hearing Grossly Normal Nose: Normal Inspection, No Blood Throat/Mouth: Normal Inspection, Normal Lips, Normal Voice, No Airway Compromise Head: Atraumatic, Normocephalic Neck: Normal Inspection, Full Range of Motion Respiratory/Chest: No Respiratory Distress, Lungs Clear, Normal Breath Sounds, No Accessory Muscle Use Cardiovascular: Regular Rate, Rhythm, No Murmur GI/Abdominal: Normal Bowel Sounds, Soft, Non-Tender, No Organomegaly, No Distention Back Exam: Normal Inspection, Full Range of Motion. No: CVA Tenderness (L), CVA Tenderness (R) Extremities: Normal Inspection, Normal Range of Motion Neurological: Alert, Oriented, Normal Cognition, No Motor/Sensory Deficits Psychiatric: Normal Affect, Normal Mood Skin Exam: Warm, Dry, Intact, Normal Color, No Rash #1 Interpretation EKG Date: 02/12/21 Rhythm: NSR Rate (Beats/Min): 70 Trappe: Normal P-Wave: Present QRS: Normal ST-T: Normal QT: Prolonged Course - Vital Signs Last Recorded V/S: Last Vital Signs Temp 97.6 F 02/12/21 22:05 Pulse 65 02/12/21 22:58 Resp 16 02/12/21 23:01 BP 157/75 H 02/12/21 23:01 Pulse Ox 97 02/12/21 22:58 - Orders/Labs/Meds Orders: Active Orders 24 hr Category Date Time Status EKG 12 Lead [EK] Stat Ther 02/12/21 22:32 Ordered Meds: Medications Discontinued Medications Generic Name Dose Route Start Last Admin Trade Name Freq PRN Reason Stop Dose Admin Metoprolol Tartrate 25 mg 02/12/21 22:32 02/12/21 22:58 Metoprolol Tartrate 25 Mg Tab PO 02/12/21 22:33 25 mg ONETIME ONE Administration - Re-Assessments/Exams Free Text/Narrative Re-Assessment/Exam: 02/12/21 23:26 Systolic dropped to 157 prior to treatment with metoprolol 25 mg po. Patient is feeling well and the flushed feeling is gone now. 02/12/21 23:34 BP continuing down trend. Patient feeling well and ready to go home. I discussed findings and recommendations with him. He is discharged to home in stable condition. Departure - Departure Time of Disposition: 23:33 Disposition: Home, Self-Care 01 Condition: Good Clinical Impression: Anxiety Hypertension Qualifiers: Hypertension type: unspecified Qualified Code(s): I10 - Essential (primary) hypertension - Discharge Information Additional Instructions: Make sure to take your medications as directed. Follow up with your PCP if the blood pressure becomes elevated on a regular basis. If worsening, recheck with PCP or ER as needed. Sepsis Event Note (ED) - Evaluation Sepsis Screening Result: No Definite Risk - Focused Exam Vital Signs: Vital Signs Temp Pulse Pulse Resp BP BP Pulse Ox 02/12/21 23:01 16 157/75 H 02/12/21 22:58 65 65 16 157/70 H 157/70 H 97 02/12/21 22:05 97.6 F 73 16 170/87 H 96 - My Orders Last 24 Hours: My Active Orders 02/12/21 22:32 EKG 12 Lead [EK] Stat - Assessment/Plan Last 24 Hours: My Active Orders 02/12/21 22:32 EKG 12 Lead [EK] Stat
[2021-02-13 01:30] VITALS: BP 154/73
== END 2021-02-12 23:45 | disposition home or self-care (01) ==
LOC: KA.ED 22:04
DX: I11.0 Hypertensive heart disease with heart failure (principal); I50.9 Heart failure, unspecified; F41.9 Anxiety disorder, unspecified; I48.91 Unspecified atrial fibrillation; E78.00 Pure hypercholesterolemia, unspecified; I25.2 Old myocardial infarction; K21.9 Gastro-esophageal reflux disease without esophagitis; M19.90 Unspecified osteoarthritis, unspecified site; E11.9 Type 2 diabetes mellitus without complications; Z79.01 Long term (current) use of anticoagulants; Z88.8 Allergy status to other drugs, medicaments and biological substances; Z88.5 Allergy status to narcotic agent; Z79.84 Long term (current) use of oral hypoglycemic drugs; Z79.82 Long term (current) use of aspirin; Z79.899 Other long term (current) drug therapy
CPT/HCPCS: 93005; 93010; 99283-25; 99284; A9270-GY

== ENCOUNTER 2021-04-08 15:41 | Emergency (ER) | payer MEDICARE, BC ==
[2021-04-08 16:08] VITALS: PULSE 58
--- NOTE | 2021-04-08 16:23 | EDM.PDOC ---
ED HPI GENERAL MEDICAL PROBLEM - General Chief Complaint: General Stated Complaint: SINUS INFECTION?? Time Seen by Provider: 04/08/21 16:14 Source of Information: Reports: Patient History Limitations: Reports: No Limitations - History of Present Illness INITIAL COMMENTS - FREE TEXT/NARRATIVE: 75 YO WM PRESENTS TO ER COMPLAINING OF SINUS CONGESTION X 5 DAYS. PT REPORTS SYMPTOMS BEGAN HEAD CONGESTION BUT NOW PT HAS A PRODUCTIVE COUGH WELL. PT WAS SEEN Friday04/06/21 FOR COVID TESTING- NEGATIVE. PT REPORTS FACIAL PAIN AND BLOODY NASAL CONGESTION. PT DENIES FEVER/CHILLS, NO HEADACHE, NO DIZZINESS, NO CHEST PAIN OR SHORTNESS OF BREATH. PT Onset Date: 04/03/21 Duration: Day(s): (5) Location: Reports: Generalized Severity: Mild Improves with: Reports: None Worsens with: Reports: None Associated Symptoms: Reports: No Other Symptoms, cough w sputum, Malaise. Denies: Chest Pain, Fever/Chills, Headaches, Nausea/Vomiting, Shortness of Breath Treatments REPAIR MILLER: Reports: Acetaminophen - Related Data Allergies Allergy/AdvReac Type Severity Reaction Status Date / Time propoxyphene napsylate Allergy Unknown Headache Verified 04/08/21 15:49 [From Darvocet-N 100] alprazolam Allergy Hallucinati Verified 04/08/21 15:49 ons hydrocodone Allergy palpitation Verified 04/08/21 15:49 s pseudoephedrine Allergy palpatation Verified 04/08/21 15:49 [From Sudafed] s xeroform wound dressing Allergy Blisters Uncoded 04/08/21 15:49 Home Meds: Home Meds Bimatoprost [LUMIGAN 0.01% Ophth Soln] 1 drop EYEBOTH BEDTIME 04/15/13 [History] Rosuvastatin [Crestor] 20 mg PO BEDTIME 08/07/16 [History] Brimonidine Tartrate/Timolol [Combigan 0.2%-0.5% Eye Drops] 1 drop EYEBOTH BID 09/21/16 [History] Finasteride [Proscar] 5 mg PO DAILY 09/21/16 [History] Fluorometholone [Flarex 0.1% Ophth Susp] 1 drop EYEBOTH QAM 09/21/16 [History] Nitroglycerin 0.4 mg SL ASDIRECTED PRN 09/21/16 [History] Empagliflozin [Jardiance] 25 mg PO DAILY 04/23/18 [History] Iron Polysaccharide Complex [Iferex 150] 150 mg PO BID@08,12 04/23/18 [History] Losartan Potassium [Cozaar] 25 mg PO DAILY 04/23/18 [History] Tresiba 42 units SQ BEDTIME 04/23/18 [History] Furosemide [Lasix] 20 mg PO 0800,1600 04/24/18 [History] Gabapentin [Neurontin] 600 mg PO 2100 04/24/18 [History] Magnesium Oxide 400 mg PO DAILY@1200 04/24/18 [History] Omeprazole 40 mg PO DAILY 04/24/18 [History] metFORMIN HCl [Metformin HCl] 500 mg PO BIDMEALS 04/24/18 [History] Metoprolol Succinate [Toprol XL] 12.5 mg PO BID 06/03/19 [History] amLODIPine [Norvasc] 5 mg PO 1800 06/03/19 [History] Aspirin [Aspirin EC] 81 mg PO DAILY@1200 06/19/20 [History] Carboxymethylcellulose Sodium [Artificial Tears] 1 drop EYEBOTH Q4H PRN 06/19/20 [History] LORazepam [Ativan] 0.5 mg PO BID 06/19/20 [History] Tamsulosin [Flomax] 0.4 mg PO BEDTIME 06/19/20 [History] polyethylene glycoL 3350 [MiraLAX] 17 gm PO DAILY PRN #30 06/29/20 [Rx] traMADol [Ultram] 50 mg PO Q6H PRN 06/30/20 [History] Amoxicillin/Potassium Clav [Augmentin 875-125 Tablet] 1 each PO BID #20 tablet 04/08/21 [Rx] Clopidogrel [Plavix] 75 mg PO DAILY 04/08/21 [History] Difluprednate [Durezol] 1 drop EYELF BID 04/08/21 [History] Past Medical History HEENT History: Reports: Allergic Rhinitis, Cataract, Glaucoma, Hard of Hearing, Impaired Vision Cardiovascular History: Reports: Afib, Aneurysm, Angina, Blood Clots/VTE/DVT, Heart Failure, Heart Murmur, High Cholesterol, Hypertension, [place], Prior Cardiac Arrest, Stents Respiratory History: Reports: Intubation, Previous Gastrointestinal History: Reports: GERD, Hemorrhoids Genitourinary History: Reports: Renal Calculus Musculoskeletal History: Reports: Arthritis Neurological History: Reports: None Psychiatric History: Reports: Anxiety Endocrine/Metabolic History: Reports: Diabetes, Type II Hematologic History: Reports: Anticoagulation Therapy, Iron Deficiency Immunologic History: Reports: None Oncologic (Cancer) History: Reports: Basal Cell Carcinoma Other Oncologic History: skin Dermatologic History: Reports: Benign Melanoma, Cellulitis Other Dermatologic History: skin cancer face head and ears - Infectious Disease History Infectious Disease History: Reports: Chicken Pox, Influenza, Measles, Mumps - Past Surgical History HEENT Surgical History: Reports: Cataract Surgery, Eye Surgery Other HEENT Surgeries/Procedures: cornea transplant Cardiovascular Surgical History: Reports: Cardiac Ablation, Carotid Stents, Coronary Artery Bypass, Coronary Artery Stent Other Cardiovascular Surgeries/Procedures: s/p resection of LV aneurysm Respiratory Surgical History: Reports: None GI Surgical History: Reports: Appendectomy, Colonoscopy Male Surgical History: Reports: Lithotripsy (ESWL) Endocrine Surgical History: Reports: None Neurological Surgical History: Reports: Lumbar Spine, Other (See Below) Other Neurological Surgeries/Procedures: nerve relocation Musculoskeletal Surgical History: Reports: Knee Replacement, Nerve Relocation Other Musculoskeletal Surgeries/Procedures:: back surgery Dermatological Surgical History: Reports: Skin Biopsy, Other (See Below) Social & Family History - Family History Family Medical History: No Pertinent Family History Cardiac: Reports: Bypass, [place] Endocrine/Metabolic: Reports: Diabetes, type II Oncologic: Reports: Ovarian - Tobacco Use Tobacco Use Status *Q: Former Tobacco User Used Tobacco, but Quit: Yes Month/Year Tobacco Last Used: quit years ago - Caffeine Use Caffeine Use: Reports: Soda Other Caffeine Use: decaf coffee - Recreational Drug Use Recreational Drug Use: No - Living Situation & Occupation Living situation: Reports: Occupation: Retired ED ROS GENERAL - Review of Systems Review Of Systems: See Below Constitutional: Reports: No Symptoms HEENT: Reports: Sinus Problem Respiratory: Reports: Cough Cardiovascular: Reports: No Symptoms Endocrine: Reports: No Symptoms GI/Abdominal: Reports: No Symptoms : Reports: No Symptoms Musculoskeletal: Reports: No Symptoms Skin: Reports: No Symptoms Neurological: Reports: No Symptoms Psychiatric: Reports: No Symptoms Hematologic/Lymphatic: Reports: No Symptoms Immunologic: Reports: No Symptoms ED EXAM, GENERAL - Physical Exam Exam: See Below Exam Limited By: No Limitations General Appearance: Alert, WD/WN, No Apparent Distress Ears: Normal External Exam, Normal Canal, Hearing Grossly Normal, Normal TMs Ear Exam: Bilateral Ear: Auricle Normal, Canal Normal Nose: Nasal Tenderness Throat/Mouth: Normal Inspection, Normal Lips, Normal Teeth, Normal Gums, Normal Oropharynx, Normal Voice, No Airway Compromise Head: Atraumatic, Normocephalic, Facial Tenderness, Sinus Tenderness. No: Facial Swelling Neck: Normal Inspection, Supple, Non-Tender, Full Range of Motion Respiratory/Chest: No Respiratory Distress, Lungs Clear, Normal Breath Sounds, No Accessory Muscle Use, Chest Non-Tender Cardiovascular: Normal Peripheral Pulses, Regular Rate, Rhythm, No Edema, No Gallop, No JVD, No Murmur, No Rub GI/Abdominal: Normal Bowel Sounds, Soft, Non-Tender, No Organomegaly, No Distention, No Abnormal Bruit, No Mass Back Exam: Normal Inspection, Full Range of Motion, NT Extremities: Normal Inspection, Normal Range of Motion, Non-Tender, Normal Capillary Refill, No Pedal Edema Neurological: Alert, Oriented, CN II-XII Intact, Normal Cognition, Normal Gait, No Motor/Sensory Deficits Psychiatric: Normal Affect, Normal Mood Skin Exam: Warm, Dry, Intact, Normal Color, No Rash Lymphatic: No Adenopathy Course - Vital Signs Last Recorded V/S: Last Vital Signs Temp 97.3 F 04/08/21 15:43 Pulse 58 L 04/08/21 16:07 Resp 18 04/08/21 15:43 BP 142/64 H 04/08/21 16:07 Pulse Ox 94 L 04/08/21 16:07 - Orders/Labs/Meds Orders: Active Orders 24 hr Category Date Time Status Chest 2V [CR] Stat Exams 04/08/21 16:16 Ordered - Radiology Interpretation Free Text/Narrative:: CXR- NAD Departure - Departure Time of Disposition: 16:41 Disposition: Home, Self-Care 01 Condition: Good Clinical Impression: Acute frontal sinusitis Qualifiers: Recurrence: non-recurrent Qualified Code(s): J01.10 - Acute frontal sinusitis, unspecified - Discharge Information Prescriptions: Amoxicillin/Potassium Clav [Augmentin 875-125 Tablet] 1 each PO BID #20 tablet Instructions: Sinusitis, Adult Referrals: Zonia Harrison MD [Primary Care Provider] - Forms: ED Department Discharge Additional Instructions: 1. DISCHARGE HOME 2. AUGMENTIN 875MG TWICE/DAY X 10 DAYS 3. SALINE NS 2 SPRAYS EACH NOSTRIL 3X/DAY 4. ZYRTEC 10MG DAILY FOR COUGH/CONGESTION 5. MOTRIN 600MG EVERY 6 HOURS NEEDED FOR FACIAL PAIN 6. FOLLOW UP WITH PCP FOR RECHECK NEEDED 7. RETURN TO ER FOR WORSENING SYMPTOMS Sepsis Event Note (ED) - Evaluation Sepsis Screening Result: No Definite Risk - Focused Exam Vital Signs: Vital Signs Temp Pulse Resp BP Pulse Ox 04/08/21 16:07 58 L 142/64 H 94 L 04/08/21 15:43 97.3 F 63 18 154/72 H 94 L - My Orders Last 24 Hours: My Active Orders 04/08/21 16:16 Chest 2V [CR] Stat - Assessment/Plan Last 24 Hours: My Active Orders 04/08/21 16:16 Chest 2V [CR] Stat Assessment:: 1. FRONTAL SINUSITIS 2. VIRAL URI Plan: 1. DISCHARGE HOME 2. AUGMENTIN 875MG TWICE/DAY X 10 DAYS 3. SALINE NS 2 SPRAYS EACH NOSTRIL 3X/DAY 4. ZYRTEC 10MG DAILY FOR COUGH/CONGESTION 5. MOTRIN 600MG EVERY 6 HOURS NEEDED FOR FACIAL PAIN 6. FOLLOW UP WITH PCP FOR RECHECK NEEDED 7. RETURN TO ER FOR WORSENING SYMPTOMS
[2021-04-08 16:33] VITALS: BP 128/60
[2021-04-08] MEDS: Amoxicillin/Clavulanate K 875-125 MG Tab PO ONE (16:53)
--- NOTE | 2021-04-08 16:53 | CR ---
[id number] RAD/RAD Chest PA And Lateral EXAM: RAD Chest PA And Lateral INDICATION: COUGH, CONGESTION. COMPARISON: Multiple priors, most recent from May 2020. DISCUSSION/IMPRESSION: Persistent blunting of the left costophrenic sulcus, unchanged from the prior examination. Findings are likely a small chronic effusion. Lungs are clear. Median sternotomy. Heart is normal in size. Johny Kelley MD 04/08/21 [id number] Thank you for allowing us to participate in the care of your patient.
== END 2021-04-08 16:45 | disposition home or self-care (01) ==
LOC: KA.ED 15:41
DX: J01.10 Acute frontal sinusitis, unspecified (principal); I48.91 Unspecified atrial fibrillation; I11.0 Hypertensive heart disease with heart failure; I50.9 Heart failure, unspecified; I25.2 Old myocardial infarction; E78.00 Pure hypercholesterolemia, unspecified; K21.9 Gastro-esophageal reflux disease without esophagitis; E11.9 Type 2 diabetes mellitus without complications; Z87.891 Personal history of nicotine dependence; Z88.8 Allergy status to other drugs, medicaments and biological substances; Z88.5 Allergy status to narcotic agent; Z91.048 Other nonmedicinal substance allergy status; Z79.899 Other long term (current) drug therapy; Z79.84 Long term (current) use of oral hypoglycemic drugs; Z79.02 Long term (current) use of antithrombotics/antiplatelets; Z79.82 Long term (current) use of aspirin; Z95.5 Presence of coronary angioplasty implant and graft
CPT/HCPCS: 71046; 99283-25; 99284; A9270-GY

== ENCOUNTER 2022-12-09 08:26 | Inpatient (IN) | payer BC, MEDICARE ==
[2022-12-09] MEDS ORDERED: Sodium Chloride 0.9% 10 ML Syringe FLUSH PRN (08:39)
[2022-12-09 09:00] LABS: BASOPHILS ABSOLUTE AUTO 0.01 10^3/uL (0.00-0.10); BASOPHILS PERCENT AUTO 0.1 % (0.0-1.0); EOSINOPHILS ABSOLUTE AUTO 0.02 10^3/uL (0.10-0.30); EOSINOPHILS PERCENT AUTO 0.2 % (1.0-3.0); HEMATOCRIT 42.8 % (40.0-52.0); HEMOGLOBIN 13.5 g/dL (13.0-17.0); IMMATURE GRAN ABSOLUTE AUTO 0.03 10^3/uL (0.00-0.50); IMMATURE GRAN PERCENT AUTO 0.3 % (0.0-5.0); LYMPHOCYTES ABSOLUTE AUTO 0.76 10^3/uL (1.00-4.00); LYMPHOCYTES PERCENT AUTO 7.2 % (20.0-40.0); MEAN CORPUSCULAR HEMOGLOBIN 30.1 pg (27.0-31.0); MEAN CORPUSCULAR HGB CONC 31.5 g/dL (32.0-36.0); MEAN CORPUSCULAR VOLUME 95.5 fL (82.0-92.0); MEAN PLATELET VOLUME 9.8 fL (7.4-10.4); MONOCYTES ABSOLUTE AUTO 0.93 10^3/uL (0.10-0.80); MONOCYTES PERCENT AUTO 8.8 % (2.0-8.0); NEUTROPHILS ABSOLUTE AUTO 8.87 10^3/uL (2.50-7.00); NEUTROPHILS PERCENT AUTO 83.4 % (50.0-70.0); PLATELET COUNT,PLT 148 10^3/uL (150-400); RED BLOOD CELL COUNT 4.48 10^6/uL (4.50-6.00); RED CELL DISTRIBUTION WIDTH 14.8 % (11.5-14.5); WHITE BLOOD CELL COUNT,WBC 10.62 10^3/uL (5.00-10.00)
[2022-12-09 09:21] LABS: ALBUMIN 3.73 g/dL (3.40-5.00); ANION GAP 13.3 mmol/L (5-15); BILIRUBIN TOTAL 1.2 mg/dL (0.2-1.0); CALCIUM 8.9 mg/dL (8.7-10.3); CARBON DIOXIDE,CO2 27.6 mmol/L (21.0-32.0); CREATININE 1.13 mg/dL (0.51-1.17); EST CRCL DRUG DOSING (CG) 60.09 mL/min; POTASSIUM,K 3.9 mmol/L (3.5-5.1); PROTEIN TOTAL,TP 7.1 g/dL (6.4-8.2)
[2022-12-09 09:46] LABS: INFLUENZA A NAA NEGATIVE (NEGATIVE); INFLUENZA B NAA NEGATIVE (NEGATIVE)
[2022-12-09 09:47] LABS: CORONAVIRUS COVID-19 NAA NEGATIVE (NEGATIVE)
[2022-12-09] MEDS ORDERED: Furosemide 40 MG/4 ML VIAL IVPUSH ONE (10:08)
[2022-12-09] MEDS ORDERED: Ondansetron 4 MG/2 ML SDV IV PRN (11:42)
[2022-12-09] MEDS ORDERED: Acetaminophen 325 MG Tab PO PRN (11:42)
[2022-12-09] MEDS ORDERED: traMADol 50 MG Tab PO PRN (11:42)
[2022-12-09] MEDS ORDERED: LINACLOTIDE 145 MCG PO PRN (11:42)
[2022-12-09] MEDS ORDERED: Nitroglycerin 0.4 MG Tab.SL SL PRN (11:42)
[2022-12-09] MEDS ORDERED: Finasteride 5 MG Tab PO SCH (12:00)
[2022-12-09] MEDS ORDERED: Polyethylene Glycol 3350 Powder 17 GM Packet PO PRN (12:07)
[2022-12-09] MEDS ORDERED: PEG 400/Hypromellose/Glycerin 15 ML Bottle EYEBOTH PRN (12:12)
[2022-12-09] MEDS: Aspirin 81 MG Tab.EC PO SCH (12:41)
[2022-12-09] MEDS: Heparin Sodium 5,000 Units/ML Vial SUBCUT SCH ×2 (14:21→21:00)
[2022-12-09] MEDS ORDERED: Glucagon,Human Recombinant 1 MG Vial IM PRN (14:56)
[2022-12-09] MEDS ORDERED: 50% Dextrose in Water 50 ML Syringe IVPUSH PRN (14:56)
[2022-12-09] MEDS ORDERED: EMPAGLIFLOZIN 25 MG PO SCH (16:00)
[2022-12-09] MEDS ORDERED: Furosemide 40 MG/4 ML VIAL IVPUSH SCH (17:00)
[2022-12-09] MEDS: Insulin Lispro 100 Unit/ML 3 ML KwikPen SUBCUT SCH (17:46)
[2022-12-09] MEDS ORDERED: amLODIPine 5 MG Tab PO SCH (18:00)
[2022-12-09] MEDS: Sennosides/Docusate Sodium 50-8.6 MG Tab PO SCH (20:19)
[2022-12-09] MEDS: Escitalopram 10 MG Tab PO SCH (20:19)
[2022-12-09] MEDS: Rosuvastatin 10 MG Tab PO SCH (20:19)
[2022-12-09] MEDS: LORazepam 0.5 MG Tab PO SCH (20:20)
[2022-12-09] MEDS: Gabapentin 300 MG Cap PO SCH (20:20)
[2022-12-09] MEDS: Latanoprost 0.005% Ophth Soln 2.5 ML Bottle EYEBOTH SCH (20:26)
[2022-12-09] MEDS: Timolol Maleate 0.5% Ophth Soln 5 ML Bottle EYEBOTH SCH (20:50)
[2022-12-09] MEDS: Brimonidine 0.2% Ophth Soln 15 ML Bottle EYEBOTH SCH (20:50)
[2022-12-09] MEDS: Fluorometholone 0.1% Ophth Susp 5 ML Bottle EYEBOTH SCH (20:56)
[2022-12-09] MEDS ORDERED: Tamsulosin 0.4 MG Cap.ER PO SCH (21:00)
[2022-12-10] MEDS: Heparin Sodium 5,000 Units/ML Vial SUBCUT SCH (06:07)
[2022-12-10] MEDS: Pantoprazole 20 MG Tab, Delayed Release PO SCH ×2 (06:13→08:17)
[2022-12-10 07:33] LABS: BASOPHILS ABSOLUTE AUTO 0.02 10^3/uL (0.00-0.10); BASOPHILS PERCENT AUTO 0.2 % (0.0-1.0); EOSINOPHILS ABSOLUTE AUTO 0.08 10^3/uL (0.10-0.30); EOSINOPHILS PERCENT AUTO 0.9 % (1.0-3.0); HEMATOCRIT 41.8 % (40.0-52.0); HEMOGLOBIN 13.1 g/dL (13.0-17.0); IMMATURE GRAN ABSOLUTE AUTO 0.02 10^3/uL (0.00-0.50); IMMATURE GRAN PERCENT AUTO 0.2 % (0.0-5.0); LYMPHOCYTES ABSOLUTE AUTO 0.86 10^3/uL (1.00-4.00); LYMPHOCYTES PERCENT AUTO 10.2 % (20.0-40.0); MEAN CORPUSCULAR HEMOGLOBIN 30.3 pg (27.0-31.0); MEAN CORPUSCULAR HGB CONC 31.3 g/dL (32.0-36.0); MEAN CORPUSCULAR VOLUME 96.8 fL (82.0-92.0); MEAN PLATELET VOLUME 10.1 fL (7.4-10.4); MONOCYTES ABSOLUTE AUTO 0.71 10^3/uL (0.10-0.80); MONOCYTES PERCENT AUTO 8.4 % (2.0-8.0); NEUTROPHILS ABSOLUTE AUTO 6.75 10^3/uL (2.50-7.00); NEUTROPHILS PERCENT AUTO 80.1 % (50.0-70.0); PLATELET COUNT,PLT 148 10^3/uL (150-400); RED BLOOD CELL COUNT 4.32 10^6/uL (4.50-6.00); RED CELL DISTRIBUTION WIDTH 14.8 % (11.5-14.5); WHITE BLOOD CELL COUNT,WBC 8.44 10^3/uL (5.00-10.00)
[2022-12-10 07:51] LABS: A/G RATIO 1.02; ALBUMIN 3.49 g/dL (3.40-5.00); ANION GAP 12.2 mmol/L (5-15); BILIRUBIN DIRECT 0.3 mg/dL (0.0-0.2); BILIRUBIN INDIRECT 0.8 mg/dL; BILIRUBIN TOTAL 1.1 mg/dL (0.2-1.0); CALCIUM 8.7 mg/dL (8.7-10.3); CARBON DIOXIDE,CO2 31.7 mmol/L (21.0-32.0); CREATININE 1.21 mg/dL (0.51-1.17); EST CRCL DRUG DOSING (CG) 56.12 mL/min; MAGNESIUM 2.2 mg/dL (1.8-2.4); POTASSIUM,K 3.9 mmol/L (3.5-5.1); PROTEIN TOTAL,TP 6.9 g/dL (6.4-8.2)
[2022-12-10] MEDS: Brimonidine 0.2% Ophth Soln 15 ML Bottle EYEBOTH SCH ×2 (08:18→20:09)
[2022-12-10] MEDS: LORazepam 0.5 MG Tab PO SCH ×2 (08:18→20:09)
[2022-12-10] MEDS: Insulin Lispro 100 Unit/ML 3 ML KwikPen SUBCUT SCH ×3 (08:18→18:04)
[2022-12-10] MEDS: Furosemide 40 MG/4 ML VIAL IVPUSH SCH ×2 (08:19→17:32)
[2022-12-10] MEDS: EMPAGLIFLOZIN 25 MG PO SCH (08:19)
[2022-12-10] MEDS: valACYclovir 500 MG Tab PO SCH (08:20)
[2022-12-10] MEDS: Timolol Maleate 0.5% Ophth Soln 5 ML Bottle EYEBOTH SCH ×2 (08:20→20:10)
[2022-12-10] MEDS ORDERED: Losartan 25 MG Tab PO SCH (09:00)
[2022-12-10] MEDS ORDERED: Metoprolol Succinate 25 MG Tab.ER PO SCH (09:00)
[2022-12-10] MEDS ORDERED: Non-Formulary Medication 1 Each (Levocetirizine Dihydrochloride [Xyzal] 5 MG Tablet) PO SCH (09:00)
[2022-12-10] MEDS: Magnesium Oxide 500 MG Tab PO SCH (12:31)
[2022-12-10] MEDS: Aspirin 81 MG Tab.EC PO SCH (12:32)
[2022-12-10] MEDS ORDERED: Enoxaparin 40 MG/0.4 ML Syringe SUBCUT SCH (14:00)
[2022-12-10] MEDS: Gabapentin 300 MG Cap PO SCH (20:09)
[2022-12-10] MEDS: Rosuvastatin 10 MG Tab PO SCH (20:09)
[2022-12-10] MEDS: Sennosides/Docusate Sodium 50-8.6 MG Tab PO SCH (20:09)
[2022-12-10] MEDS: Fluorometholone 0.1% Ophth Susp 5 ML Bottle EYEBOTH SCH (20:10)
[2022-12-10] MEDS: Latanoprost 0.005% Ophth Soln 2.5 ML Bottle EYEBOTH SCH (20:10)
[2022-12-10] MEDS: Escitalopram 10 MG Tab PO SCH (20:10)
[2022-12-11] MEDS: Pantoprazole 20 MG Tab, Delayed Release PO SCH ×2 (06:01→06:36)
[2022-12-11 07:15] LABS: BASOPHILS ABSOLUTE AUTO 0.01 10^3/uL (0.00-0.10); BASOPHILS PERCENT AUTO 0.2 % (0.0-1.0); EOSINOPHILS ABSOLUTE AUTO 0.09 10^3/uL (0.10-0.30); EOSINOPHILS PERCENT AUTO 1.4 % (1.0-3.0); HEMATOCRIT 43.7 % (40.0-52.0); HEMOGLOBIN 13.9 g/dL (13.0-17.0); IMMATURE GRAN ABSOLUTE AUTO 0.02 10^3/uL (0.00-0.50); IMMATURE GRAN PERCENT AUTO 0.3 % (0.0-5.0); LYMPHOCYTES ABSOLUTE AUTO 0.88 10^3/uL (1.00-4.00); LYMPHOCYTES PERCENT AUTO 13.4 % (20.0-40.0); MEAN CORPUSCULAR HEMOGLOBIN 30.4 pg (27.0-31.0); MEAN CORPUSCULAR HGB CONC 31.8 g/dL (32.0-36.0); MEAN CORPUSCULAR VOLUME 95.6 fL (82.0-92.0); MEAN PLATELET VOLUME 9.5 fL (7.4-10.4); MONOCYTES ABSOLUTE AUTO 0.53 10^3/uL (0.10-0.80); MONOCYTES PERCENT AUTO 8.1 % (2.0-8.0); NEUTROPHILS ABSOLUTE AUTO 5.02 10^3/uL (2.50-7.00); NEUTROPHILS PERCENT AUTO 76.6 % (50.0-70.0); PLATELET COUNT,PLT 156 10^3/uL (150-400); RED BLOOD CELL COUNT 4.57 10^6/uL (4.50-6.00); RED CELL DISTRIBUTION WIDTH 14.5 % (11.5-14.5); WHITE BLOOD CELL COUNT,WBC 6.55 10^3/uL (5.00-10.00)
[2022-12-11 07:31] LABS: ANION GAP 12.7 mmol/L (5-15); CALCIUM 9.1 mg/dL (8.7-10.3); CARBON DIOXIDE,CO2 32.1 mmol/L (21.0-32.0); CREATININE 1.18 mg/dL (0.51-1.17); EST CRCL DRUG DOSING (CG) 57.54 mL/min; MAGNESIUM 2.3 mg/dL (1.8-2.4); POTASSIUM,K 3.8 mmol/L (3.5-5.1)
[2022-12-11] MEDS: Insulin Lispro 100 Unit/ML 3 ML KwikPen SUBCUT SCH ×2 (08:01→12:11)
[2022-12-11] MEDS: LORazepam 0.5 MG Tab PO SCH (08:08)
[2022-12-11] MEDS: Brimonidine 0.2% Ophth Soln 15 ML Bottle EYEBOTH SCH (08:09)
[2022-12-11] MEDS: Furosemide 40 MG/4 ML VIAL IVPUSH SCH (08:10)
[2022-12-11] MEDS: EMPAGLIFLOZIN 25 MG PO SCH (08:10)
[2022-12-11] MEDS: Timolol Maleate 0.5% Ophth Soln 5 ML Bottle EYEBOTH SCH (08:11)
[2022-12-11] MEDS: valACYclovir 500 MG Tab PO SCH (08:11)
[2022-12-11] MEDS: Magnesium Oxide 500 MG Tab PO SCH (12:12)
[2022-12-11] MEDS: Aspirin 81 MG Tab.EC PO SCH (12:12)
[2022-12-11 13:38] VITALS: BP 141/71; PULSE 71
== END 2022-12-11 12:59 | disposition home or self-care (01) | DRG 292 ==
LOC: KA.ED 08:26 → KA.MS 10:47
PROVIDERS: ADMIT Family Medicine; ATTEND Family Medicine
DX: I13.0 Hypertensive heart and chronic kidney disease with heart failure and stage 1 through stage 4 chronic kidney disease, or unspecified chronic kidney disease (principal); N17.9 Acute kidney failure, unspecified; I10 Essential (primary) hypertension; I50.9 Heart failure, unspecified; I48.91 Unspecified atrial fibrillation; I95.9 Hypotension, unspecified; Z79.01 Long term (current) use of anticoagulants; N40.0 Benign prostatic hyperplasia without lower urinary tract symptoms; E78.00 Pure hypercholesterolemia, unspecified; K21.9 Gastro-esophageal reflux disease without esophagitis; Z86.718 Personal history of other venous thrombosis and embolism; Z95.1 Presence of aortocoronary bypass graft; M19.90 Unspecified osteoarthritis, unspecified site; Z94.7 Corneal transplant status; K59.09 Other constipation; H91.90 Unspecified hearing loss, unspecified ear; F41.9 Anxiety disorder, unspecified; E11.9 Type 2 diabetes mellitus without complications; H40.9 Unspecified glaucoma; Z96.659 Presence of unspecified artificial knee joint; R09.02 Hypoxemia; E66.9 Obesity, unspecified; Z20.822 Contact with and (suspected) exposure to COVID-19; Z87.891 Personal history of nicotine dependence; Z68.32 Body mass index [BMI] 32.0-32.9, adult; Z98.890 Other specified postprocedural states; I25.2 Old myocardial infarction; Z88.8 Allergy status to other drugs, medicaments and biological substances; Z79.899 Other long term (current) drug therapy; Z79.84 Long term (current) use of oral hypoglycemic drugs; Z79.82 Long term (current) use of aspirin; Z95.5 Presence of coronary angioplasty implant and graft; Z87.442 Personal history of urinary calculi; Z85.828 Personal history of other malignant neoplasm of skin; Z98.49 Cataract extraction status, unspecified eye; Z90.49 Acquired absence of other specified parts of digestive tract
CPT/HCPCS: 0240U; 36415; 71045; 80048; 80053; 80076; 82140; 82947; 83605; 83735; 83880; 84145; 84484; 85025; 96374; 97535-GO; 99285-25; A9270-GY; J1644; J1650; J1815-GY; J1940; J3490; Q3014

== ENCOUNTER 2024-03-12 10:48 | Emergency (ER) | payer MEDICARE ==
[2024-03-12] MEDS ORDERED: Sodium Chloride 0.9% 10 ML Syringe FLUSH PRN (11:01)
[2024-03-12 11:12] LABS: BASOPHILS ABSOLUTE AUTO 0.04 10^3/uL (0.00-0.10); BASOPHILS PERCENT AUTO 0.6 % (0.0-1.0); EOSINOPHILS ABSOLUTE AUTO 0.31 10^3/uL (0.10-0.30); EOSINOPHILS PERCENT AUTO 4.3 % (1.0-3.0); HEMATOCRIT 45.7 % (40.0-52.0); HEMOGLOBIN 14.9 g/dL (13.0-17.0); IMMATURE GRAN ABSOLUTE AUTO 0.02 10^3/uL (0.00-0.50); IMMATURE GRAN PERCENT AUTO 0.3 % (0.0-5.0); MEAN CORPUSCULAR HEMOGLOBIN 31.6 pg (27.0-31.0); MEAN CORPUSCULAR HGB CONC 32.6 g/dL (32.0-36.0); MEAN CORPUSCULAR VOLUME 96.8 fL (82.0-92.0); MONOCYTES ABSOLUTE AUTO 0.55 10^3/uL (0.10-0.80); MONOCYTES PERCENT AUTO 7.7 % (2.0-8.0); NEUTROPHILS ABSOLUTE AUTO 5.24 10^3/uL (2.50-7.00); NEUTROPHILS PERCENT AUTO 73.1 % (50.0-70.0); PLATELET COUNT,PLT 151 10^3/uL (150-400); RED BLOOD CELL COUNT 4.72 10^6/uL (4.50-6.00); WHITE BLOOD CELL COUNT,WBC 7.16 10^3/uL (5.00-10.00)
[2024-03-12] MEDS: Sodium Chloride 0.9% 1,000 ML IV ONE (11:23)
[2024-03-12 11:33] LABS: ALBUMIN 3.79 g/dL (3.40-5.00); ANION GAP 14.4 mmol/L (5-15); BILIRUBIN TOTAL 0.6 mg/dL (0.2-1.0); CALCIUM 8.4 mg/dL (8.7-10.3); CARBON DIOXIDE,CO2 26.6 mmol/L (21.0-32.0); CREATININE 1.27 mg/dL (0.51-1.17); EST CRCL DRUG DOSING (CG) 52.62 mL/min; PROTEIN TOTAL,TP 6.9 g/dL (6.4-8.2)
[2024-03-12 11:43] LABS: LACTIC ACID 1.4 mmol/L (0.4-2.0)
[2024-03-12] MEDS: Diltiazem 25 MG/5 ML SDV IVPUSH ONE (12:02)
[2024-03-12 12:32] VITALS: BP 120/68; PULSE 63
== END 2024-03-12 12:44 | disposition home or self-care (01) ==
LOC: KA.ED 10:48
DX: I48.91 Unspecified atrial fibrillation (principal); I11.0 Hypertensive heart disease with heart failure; I50.9 Heart failure, unspecified; I25.2 Old myocardial infarction; E78.00 Pure hypercholesterolemia, unspecified; E66.9 Obesity, unspecified; E11.9 Type 2 diabetes mellitus without complications; Z88.8 Allergy status to other drugs, medicaments and biological substances; Z79.84 Long term (current) use of oral hypoglycemic drugs; Z79.899 Other long term (current) drug therapy; Z90.49 Acquired absence of other specified parts of digestive tract; Z68.32 Body mass index [BMI] 32.0-32.9, adult
CPT/HCPCS: 36415; 71045; 80053; 83605; 83880; 84484; 85025; 96361; 96374; 99285-25; J3490; J7030